=== PATIENT | female | born 1995 | race Caucasian/White ===

== ENCOUNTER 2024-06-30 19:05 | Inpatient (IN) | payer OTHER ==
--- OUTSIDE RECORDS SUMMARY | 2024-06-30 19:11 | XMS REPORT | Continuity of Care Document ---
Author Name Unknown Address [address] [facility] [address] [place] [address] [facility] thconnect Address [address] [facility] [address] [place] [address] Care Team Providers Care Can Tender Name Role Phone Abdiel Sanabria Primary Care Physician + [phone] GIANCARLO MORGAN Attending Clinician Unavailable Thea Helms MA Attending Clinician Unavailchelo Morgan MD, Giancarlo Doherty Attending Clinician [phone] TOMMIE RODRIGUEZ Attending Clinician TOMMIE Fountain Attending Clinician ALISON Delgado Attending Clinician Unavailable Alison Singleton PA-C Attending Clinician [phone] Doctor Unassigned, [place] Attending Clinician U JENNIFER Danielle Attending Clinician Unavailable JENNIFER CALVERT Attending Clinician Unavailable AMBREEN_VIKA Attending Clinician Unavailable Lola Wilhelm LVN Attending Clinician [phone] MIKE JACOBS Attending Clinician Unavailable Yumiko See Attending Clinician [phone] Michael Chaves MD Attending Clinician [phone] Mike Jacobs DO Attending Clinician [phone] MARIIA Attending Clinician Unavailable Summer Bae CRNA Attending Clinician [phone] Skip Harvey MD Attending Clinician [phone] Pob, [facility] Main Attending Clinician Unavailabl e Room, [facility] Nst Attending Clinician Unavailable Bruno De Paz MD Attending Clinician + BRUNO DE PAZ Attending Clinician Unav ailable Ultrasound, [facility] Attending Clinician Unavaila Jaja Chang RN Attending Clinician Unavail able Yahaira Bueno Attending Clinician [phone], [facility] Attending Clinician Unavailable Vaccine, [facility] Attending Clinician Unavailable Olivia Chaudhry MD Attending Clinician [phone] OLIVIA CHAUDHRY Attending Clinician Unavailable OLIVIA CHAUDHRY Attending Clinician Unavailable Sophia CRABTREE, Cassie Attending Clinician Unavailab JAK Henson Attending Clinician Unavailable Marguerite Carlson Attending Clinician UnavailJak Lundberg MD Attending Clinician [phone] Timothy Hawk MD Attending Clinician [phone] TIMOTHY HAWK Attending Clinician Unavailable DOT HILLIARD Attending Clinician Unavailable Reena Art MD Attending Clinician [phone] Dot Hilliard MD Attending Clinician +[phone] MARY CHAUDHRY Attending Clinician Unavail able Shayan Foster Attending Clinician + [phone] SHAYAN TEJADA Attending Clinician Unavaila Abdiel Duval Attending Clinician [phone] GIANCARLO MORGAN Admitting Clinician Unavailable TARA_VIKA Admitting Clinician Unavailable MIKE JACOBS Admitting Clinician Unavailable Mike Jacobs DO Admitting Clinician +[phone] MARIIA Admitting Clinician Unavailable Giancarlo Morgan MD Admitting Clinician [phone] DOT HILLIARD Admitting Clinician Unavailable Dot Hilliard MD Admitting Clinician [phone] SHAYAN TEJADA Admitting Clinician Unavaila janet Payers Payer Name Policy Type Policy Number Effective Date Expirati on Date Source [facility] [id number] 00:00:00 [facility] (MEDICAID HMO) [id number] 2022 00:00:00 [place] [place]ICAID[place] [id number] [facility] [place]MEDICAID REPLACEMENT - HMO) [id number] 2022 00:00:00 [place] [id number] INDIGENT PROGRAM [id number] [place] [facility] ([facility]) [id number] Problems Condition Name Condition Details Condition Category Status Onset Date Resolution Date Last Treatment Date Treating Clinician Comments Source Hyperinsul inism Hyperinsul inism Problem Active 05-09 00:00: 00 [facility] Vitamin D deficiency Vitamin D Deficiency Problem Active 05-09 00:00: 00 [facility] Serum iron below reference range Serum Iron below Reference Range Problem Active 8 00:00: 00 [facility] Anemia Anemia Problem Active 04-25 00:00: 00 [facility] Bipolar I disorder Bipolar I Disorder Problem Active 04-25 00:00: 00 [facility] Anxiety Anxiety Problem Active 04-25 00:00: 00 [facility] Chronic depression Chronic Depression Problem Active 04-25 00:00: 00 [facility] Mood swings Mood Swings Problem Active 04-25 00:00: 00 [facility] Presence of intrauteri ne contracept robb device Presence of intrauteri ne contracept robb device Disease Active 6-22 00:00: 00 [facility] IUD checked - no problems IUD Checked - No Problems Problem Active 6-21 00:00: 00 [facility] Uses intrauteri ne contracept ion Uses Intrauteri ne Contracept ion Problem Active 4-25 00:00: 00 [facility] Encounter for screening for maternal depression Encounter for screening for maternal depression Disease Active 2023-0 3-23 00:00: 00 [facility] Acute right flank pain Acute right flank pain Disease Active 0 2-26 00:00: 00 [facility] Acute gallstone pancreatit is Acute gallstone pancreatit is Disease Active 0 2-24 00:00: 00 [facility] Obesity (BMI 30-39.9) Obesity (BMI 30-39.9) Disease Active 2-24 00:00: 00 [facility] Gestationa l hypertensi on, third trimester Gestationa l hypertensi on, third trimester Disease Active 0 1-10 00:00: 00 [facility] Liveborn infant, of [place] , born in hospital by vaginal delivery Liveborn , of [place] , born in hospital by vaginal delivery Disease Active 0 1-10 00:00: 00 [facility] Chorioamni onitis in third trimester Chorioamni onitis in third trimester Disease Active 0 1-10 00:00: 00 [facility] 39 weeks gestation of 39 weeks gestation of Disease Active 0 1-09 00:00: 00 [facility] Encounter for planned induction of labor Encounter for planned induction of labor Disease Active 0 1-09 00:00: 00 [facility] Excessive growth affecting , antepartum , single or unspecifie d fetus Excessive growth affecting , antepartum , single or unspecifie d fetus Disease Active 1 1-28 00:00: 00 [facility] Two vessel umbilical cord, antepartum , single gestation Two vessel umbilical cord, antepartum , single gestation Disease Active 0 9-28 00:00: 00 [facility] Pelvic pain during Pelvic pain during Disease Active 0 8-18 00:00: 00 [facility] Boil of buttock Boil of buttock Disease Active 0 8-18 00:00: 00 [facility] Obesity in Obesity in Disease Active 0 6-02 00:00: 00 [facility] Obesity, Class III, BMI 40-49.9 (morbid obesity) Obesity, Class III, BMI 40-49.9 (morbid obesity) Disease Active 02-25 00:00: 00 [facility] High risk , antepartum High risk , antepartum Disease Active 02-25 00:00: 00 [facility] Essential hypertensi on Essential Hypertensi on Problem Active 2019-09 00:00: 00 [facility] Essential hypertensi on Essential hypertensi on Disease Active 2019-09 00:00: 00 [facility] Bipolar disorder Bipolar Disorder Problem Active 2019-09 00:00: 00 [facility] Depressive disorder Depressive Disorder Problem Active 2019-09 00:00: 00 [facility] Depressive disorder Depressive disorder Disease Active 2019-09 00:00: 00 [facility] Bipolar disorder Bipolar disorder Disease Active 2019-09 00:00: 00 [facility] Acute sinusitis Acute sinusitis Disease Active 11-15 00:00: 00 [facility] MDD (major depressive disorder), single episode, moderate MDD (major depressive disorder), single episode, moderate Disease Active 10-12 00:00: 00 [facility] Allergies, Adverse Reactions, Alerts Allergy Name Allergy Type Status Severity Reaction(s) Onset Date Inactive Date Treating Clinician Comments Source NO KNOWN ALLERGIE S Drug Class Active [facility] Social History Social Habit Start Date Stop Date Quantity Comments Source ASSERTION 2022-01-18 00:00:00 [facility] History SDOH Social Connections Get Together [facility] History SDOH Social Connections [facility] History SDOH Social Connections Membership [facility] History SDCT Social Connections Meetings [facility] of [facility] use Cigarette Smoker [facility] Alcohol intake 2023-09-28 00:00:00 2023-09-28 00:00:00 Ex-drinker (finding) [facility] History of Social function 2023-06-28 00:00:00 2023-06-28 00:00:00 [facility] Exposure to SARS-CoV-2 (event) 2023-01-08 00:00:00 2023-01-18 14:03:00 Not sure [facility] History SDOH Alcohol Frequency 2022-11-22 00:00:00 2022-11-22 00:00:00 1 [facility] History SDOH Alcohol Std Drinks 2022-11-22 00:00:00 2022-11-22 00:00:00 0 [facility] History SDOH Alcohol Binge 2022-11-22 00:00:00 2022-11-22 00:00:00 1 [facility] History SDOH Social Connections Phone 2022-11-22 00:00:00 2022-11-22 00:00:00 5 [facility] History SDOH Social Connections Living 2022-11-22 00:00:00 2022-11-22 00:00:00 7 [facility] History SDOH Financial 2022-11-22 00:00:00 2022-11-22 00:00:00 5 [facility] History SDOH Food Worry 2022-11-22 00:00:00 2022-11-22 00:00:00 1 [facility] History SDOH Food Scarcity 2022-11-22 00:00:00 2022-11-22 00:00:00 1 [facility] History SDOH Transport Med 2022-11-22 00:00:00 2022-11-22 00:00:00 2 [facility] History SDOH Transport Non-Med 2022-11-22 00:00:00 2022-11-22 00:00:00 2 [facility] Cigarettes smoked current (pack per day) - Reported 2022-04-12 00:00:00 2022-04-12 00:00:00 [facility] Cigarette pack-years 2022-04-12 00:00:00 2022-04-12 00:00:00 [facility] Tobacco Comment 2022-04-12 00:00:00 2022-04-12 00:00:00 stoped 02/03/2022 [facility] Tobacco use and exposure 2022-04-12 00:00:00 2022-04-12 00:00:00 Smokeless tobacco non-user [facility] Sex Assigned At 1995 00:00:00 1995 00:00:00 [facility] Smoking Status Start Date Stop Date Source Current Every Day Smoker [facility] Ex-smoker 2022-04-12 00:00:00 2022-04-12 [facility] Ordered Medication Name Filled Medication Name Start Date Stop Date Current Medication? Ordering Clinician Indication Dosage Frequency Signature (SIG) Comments Components Source SERTraline 50 mg tablet 09-28 09:35: 29 09-28 00:00 :00 No 50mg Take 1 tablet by mouth in the morning. [facility] ibuprofen 600 mg tablet 09-28 09:33: 59 Yes Take 1 tablet twice daily by mouth [facility] FLUoxetine 10 mg capsule 2022-09 00:00: 00 Yes 10mg Take 1 capsule by mouth in the morning. [facility] lamoTRIgine 100 mg tablet 2022-09 00:00: 00 Yes TAKE 1 TABLET BY MOUTH IN THE EVENING [facility] levonorgest reL (KYLEENA) IUD 1 Device 01-18 20:30: 00 01-18 20:28 :00 No [id number] 1{devic e} [facility] SERTraline 50 mg tablet 12-16 12:38: 33 12-16 00:00 :00 No 50mg Take 1 tablet by mouth in the morning. [facility] ARIPiprazol e 2 mg tablet 11-29 00:00: 00 09-28 00:00 :00 No [facility] lactated ringers IV infusion 1,000 mL 11-23 18:00: 00 Yes 1000mL at 100 mL/hr, 1,000 mL, IV Infusion, CONTINUOUS , Starting on Tue11/23/22 at 1200, Until Discontinu ed, Routine, PACU [facility] iohexoL (OMNIPAQUE 300-50 mL)) injection 11-23 16:40: 00 Yes PRN, Starting on Tue11/23/22 at 1040, Until Discontinu ed, Routine, Intra-op [facility] bupivacaine (preserv free) (SENSORCAIN E MPF) 0.25 % (2.5 mg/mL) injection 11-23 16:11: 00 Yes PRN, Starting on Tue11/23/22 at 1011, Until Discontinu ed, Routine, Intra-op [facility] SERTraline (ZOLOFT) 50 mg tablet 11-23 16:10: 44 Yes 50mg Take 50 mg by mouth in the morning. [facility] sodium chloride 0.9 % irrigation solution 11-23 14:14: 00 Yes PRN, Starting on Tue11/23/22 at 0814, Until Discontinu ed, Intra-op [facility] acetaminoph en 325 mg Cap 11-23 00:00: 00 12-16 00:00 :00 No [id number] 650mg Take 650 mg by mouth every 6 (six) hours as needed for Pain (scale 4-6). [facility] lactated ringers IV infusion 1,000 mL 11-22 19:15: 00 Yes 1000mL at 75 mL/hr, 1,000 mL, IV Infusion, CONTINUOUS , Starting on Tue11/22/22 at 1315, Until Discontinu ed, Routine [facility] piperacilli n-tazobacta m (ZOSYN) 3.375 g in NaCl 0.9% (NS) 100 mL MINI-BAG 11-21 01:00: 00 11-23 17:13 :00 No 3.375g 3.375 g, IV Piggyback, Q8H ABX, 9 doses, First dose (after last reorder) on Tue11/20/22 at 1900, Last dose on Tue11/23/22 at 1100, Administer over 240 Minutes, 100 mL
Reas on for Anti-Infec tive: Empiric Non-Surgic al Prophylaxi s
Durat ion of therapy: 72 hours [facility] HYDROcodone -acetaminop hen (NORCO 5) 5-325 mg tablet 1 tablet 11-20 21:17: 52 Yes 1{tbl} 1 tablet, Oral, Q6HPRN, Starting on 11/20/22 at 1517, Until Discontinu ed, Routine, Pain (scale 4-6) [facility] SERTraline (ZOLOFT) tablet 50 mg 11-20 15:00: 00 Yes 50mg 50 mg, Oral, DAILY, First dose on 11/20/22 at 0900, Until Discontinu ed, Routine [facility] ferrous sulfate tablet 325 mg 11-20 14:00: 00 Yes 325mg 325 mg, Oral, BID, First dose on 11/20/22 at 0800, Until Discontinu ed, Routine [facility] docusate (COLACE) capsule 200 mg 11-20 07:26: 17 Yes 200mg 200 mg, Oral, QDAILYPRN, Starting on 11/20/22 at 0126, Until Discontinu ed, Routine, Constipati on [facility] enoxaparin (LOVENOX) injection 40 mg 11-19 23:00: 00 Yes 40mg 40 mg, Subcutaneo us, DAILY, First dose on Tue11/19/22 at 1700, Until Discontinu ed, Routine [facility] lactated ringers IV infusion 1,000 mL 11-19 21:00: 00 11-22 19:12 :15 No 1000mL at 150 mL/hr, 1,000 mL, IV Infusion, CONTINUOUS , Starting on Tue11/19/22 at 1500, Until Tue11/22/22 at 1312, Routine [facility] ondansetron (ZOFRAN (PF)) injection 4 mg 11-19 20:44: 04 Yes 4mg 4 mg, Slow IV Push, Q6HPRN, Starting on Tue11/19/22 at 1444, Until Discontinu ed, Routine, Nausea and Vomiting (N/V) [facility] NaCl 0.9% (NS) IV infusion 1,000 mL 11-19 19:00: 00 11-20 03:49 :34 No 1000mL at 150 mL/hr, IV Infusion, CONTINUOUS , Starting on Tue11/19/22 at 1300, Until Tue11/19/22 at 2149, Routine [facility] famotidine (PEPCID (PF)) injection 20 mg 11-19 19:00: 00 11-19 18:13 :00 No 20mg 20 mg, Slow IV Push, ONCE NOW, 1 dose, On Tue11/19/22 at 1300, KOBI [facility] piperacilli n-tazobacta m (ZOSYN) 3.375 g in NaCl 0.9% (NS) 100 mL MINI-BAG 11-19 18:00: 00 11-19 19:31 :00 No 3.375g 3.375 g, IV Piggyback, ONCE, 1 dose, On Tue11/19/22 at 1200, Administer over 30 Minutes, 100 mL
Reas on for Anti-Infec tive: Empiric Non-Surgic al Prophylaxi s
Durat ion of therapy: 72 hours [facility] dicyclomine (BENTYL) injection 20 mg 11-19 17:30: 00 11-19 17:00 :00 No 20mg 20 mg, Intramuscu lar, ONCE NOW, 1 dose, On Tue11/19/22 at 1130, Routine [facility] ketorolac (TORADOL) injection 30 mg 11-19 17:15: 00 11-19 16:59 :00 No 30mg 30 mg, Slow IV Push, ONCE NOW, 1 dose, On Tue11/19/22 at 1115, KOBI [facility] NaCl 0.9% (NS) bolus infusion 1,000 mL 11-19 17:15: 00 11-19 18:11 :00 No 1000mL at 999 mL/hr, 1,000 mL, IV Piggyback, ONCE, 1 dose, On Tue11/19/22 at 1115, STAT [facility] PNV no.95/[place]roy us fum/folic ac ( ORAL) 10-06 07:44: 58 10-06 00:00 :00 No Take by mouth. [facility] vitamin w/FA tablet 10-06 00:00: 00 12-16 00:00 :00 No [id number] 1{tbl} Take 1 tablet by mouth in the morning. [facility] docusate 100 mg capsule 10-06 00:00: 00 12-16 00:00 :00 No [id number] 200mg Take 2 capsules by mouth once daily as needed for Constipati on. [facility] ferrous sulfate 325 mg (65 mg iron) tablet 10-06 00:00: 00 12-16 00:00 :00 No [id number] 325mg Take 1 tablet by mouth in the morning and 1 tablet in the evening. [facility] ibuprofen 600 mg tablet 10-06 00:00: 00 11-23 00:00 :00 No [id number] 600mg Take 1 tablet by mouth every 6 (six) hours as needed (Pain). Take with food or milk. [facility] witch Ena (TUCKS) 50 % topical pad 10-05 15:14: 54 Yes Topical, Q4HPRN, Starting on Tue10/05/22 at 0914, Until Discontinu ed, Routine, rectal/hem orrhoidal pain [facility] rho(D) immune globulin (RHOGAM) syringe 300 mcg 10-05 15:14: 21 Yes 300ug 300 mcg, Intramuscu lar, ONCE, For 1 dose, Conditiona l, Routine [facility] HYDROcodone -acetaminop hen (NORCO 5) 5-325 mg tablet 1 tablet 10-05 15:14: 18 Yes 1{tbl} 1 tablet, Oral, Q6HPRN, Starting on Tue10/05/22 at 0914, Until Discontinu ed, Routine, Pain (scale 7-10) [facility] ibuprofen (IBU) tablet 600 mg 10-05 15:14: 18 Yes 600mg 600 mg, Oral, Q6HPRN, Starting on Tue10/05/22 at 0914, Until Discontinu ed, Routine, Pain (scale 4-6) [facility] acetaminoph en (TYLENOL) tablet 650 mg 10-05 15:14: 18 Yes 650mg 650 mg, Oral, Q6HPRN, Starting on Tue10/05/22 at 0914, Until Discontinu ed, Routine, Pain (scale 1-3) [facility] diphenhydrA MINE (BENADRYL) tablet 25 mg 10-05 15:14: 18 Yes 25mg 25 mg, Oral, Q6HPRN, Starting on Tue10/05/22 at 0914, Until Discontinu ed, Routine, Sleep, Itching [facility] ondansetron (ZOFRAN (PF)) injection 4 mg 10-05 15:14: 18 Yes 4mg 4 mg, Slow IV Push, Q8HPRN, Starting on Tue10/05/22 at 0914, Until Discontinu ed, Routine, Nausea and Vomiting (N/V) [facility] simethicone (GAS RELIEF (SIMETHICON E)) chewable tablet 160 mg 10-05 15:14: 18 Yes 160mg 160 mg, Oral, PC+HSPRN, Starting on Tue10/05/22 at 0914, Until Discontinu ed, Routine, Gas [facility] docusate (COLACE) capsule 200 mg 10-05 15:14: 18 Yes 200mg 200 mg, Oral, QDAILYPRN, Starting on Tue10/05/22 at 0914, Until Discontinu ed, Routine, Constipati on [facility] magnesium hydroxide (MILK OF MAGNESIA) 400 mg/5 mL suspension 30 mL 10-05 15:14: 18 Yes 30mL 30 mL, Oral, QDAILYPRN, Starting on Tue10/05/22 at 0914, Until Discontinu ed, Routine, Constipati on [facility] benzocaine- menthol (DERMOPLAST ) 20-0.5 % topical spray 10-05 15:14: 18 Yes Topical, PRN, Starting on Tue10/05/22 at 0914, Until Discontinu ed, Routine, Perineum discomfort [facility] oxytocin (PITOCIN) 30 units in NS 500 mL IV infusion 10-05 13:27: 44 10-05 15:14 :30 No 600mL/h 600 mL/hr, IV Infusion, PRN, For post delivery uterine atony., Starting on Tue10/05/[address] at 600 mL/hr for 1 hr then 150 mL/hr for 1 hr.
[facility] oxytocin (PITOCIN) 30 units in NS 500 mL IV infusion 10-05 13:27: 44 10-05 15:14 :30 No 300mL/h 300 mL/hr, IV Infusion, SEE-INSTRU CTIONS, Starting on Tue10/05/[address] at 300 mL/hr for 1 hr then 150 mL/hr for 1 hr. & nbsp; For post delivery uterotonic
[facility] tobramycin (NEBCIN) 280 mg in NaCl 0.9% (NS) piggyback 10-05 10:15: 00 10-05 13:39 :54 No 5mg/kg 280 mg (rounded from 285 mg = 5 mg/kg ?57 kg [place] weight), IV Piggyback, Q24H ABX, 2 doses, First dose on Tue10/05/22 at 0415, Last dose on Tue10/06/22 at 0415, Administer over 30 Minutes, 50 mL
Reas on for Anti-Infec tive: Empiric Therapy for Suspected Infection< br>Empiric Therapy Site: Pelvic
Duration of therapy: 72 hours [facility] ampicillin (POLYCILLIN -N) 2,000 mg in NaCl 0.9% (NS) 100 mL MINI-BAG 10-05 10:15: 00 10-05 22:45 :08 No 2g 2,000 mg (2 g), IV Piggyback, Q6H ABX, First dose on Tue10/05/22 at 0415, Until Discontinu ed, Administer over 30 Minutes, 100 mL
Reas on for Anti-Infec tive: Empiric Therapy for Suspected Infection< br>Empiric Therapy Site: Pelvic
Duration of therapy: 72 hours [facility] acetaminoph en (TYLENOL) tablet 1,000 mg 10-05 09:13: 20 10-05 15:14 :55 No 1000mg 1,000 mg, Oral, Q6HPRN, Starting on Tue10/05/22 at 0313, Until Tue10/05/22 at 0914, Routine, Temp > 38.5 C [facility] PNV no.95/[place] us fum/folic ac ( ORAL) 10-05 07:29: 37 Yes Take by mouth. [facility] bupivacaine (preserv free) (SENSORCAIN E MPF) 0.25 % (2.5 mg/mL) injection 10-05 04:15: 00 10-05 16:28 :48 No Caudal Block, ONCE INTRA PROCEDURE, Starting on Tue10/04/22 at 2215, Until Tue10/05/22 at 1028, Routine, Intra-op [facility] fentaNYL-ro pivacaine 2 mcg/mL-0.1 % (PF) in NS 200 mL epidural infusion RTU 10-05 01:47: 00 10-05 16:28 :48 No Epidural, ONCE INTRA PROCEDURE, Starting on Tue10/04/22 at 1947, Until Tue10/05/22 at 1028, Routine, Intra-op [facility] lidocaine-e pinephrine (XYLOCAINE W/EPINEPHRI NE) 1.5 %-1:200,000 injection 10-05 01:34: 00 10-05 16:28 :48 No Intraderma l, ONCE INTRA PROCEDURE, Starting on Tue10/04/22 at 1934, Until Tue10/05/22 at 1028, Routine, Intra-op [facility] oxytocin (PITOCIN) 30 units in NS 500 mL IV infusion 10-05 01:12: 25 10-05 15:14 :55 No 2mU/min at 2-40 mL/hr, IV Infusion, TITRATE, Starting on Tue10/04/22 at 1912, Until Tue10/05/22 at 0914, KOBI [facility] misoprostol (CYTOTEC) quarter-tab let 25 mcg 10-04 21:00: 00 10-05 00:13 :27 No 25ug 25 mcg, Vaginal, Q4H ABX, First dose (after last modificati on) on Tue10/04/22 at 1500, Until Discontinu ed, Routine [facility] misoprostol (CYTOTEC) quarter-tab let 25 mcg 10-04 15:45: 00 10-04 17:02 :43 No 25ug 25 mcg, Vaginal, Q4H ABX, First dose on Tue10/04/22 at 0945, Until Discontinu ed, Routine [facility] misoprostol (CYTOTEC) quarter-tab let 25 mcg 10-04 15:45: 00 10-04 16:53 :00 No 25ug 25 mcg, Oral, ONCE, 1 dose, On Tue10/04/22 at 0945, Routine [facility] FENTanyl PF (SUBLIMAZE (PF)) injection 100 mcg 10-04 15:44: 44 10-05 15:14 :55 No 100ug 100 mcg, Slow IV Push, Q1HPRN, Starting on Tue10/04/22 at 0944, Until Tue10/05/22 at 0914, Routine, contractio n pain without an epidural and SVE < 8 cm and Cat I strip [facility] proMETHazin e (PHENERGAN) 25 mg in NaCl 0.9% (NS) 50 mL IV piggyback 10-04 15:44: 44 10-05 15:14 :55 No 25mg 25 mg, IV Piggyback, Q4HPRN, Starting on Tue10/04/22 at 0944, Until Tue10/05/22 at 0914, Routine, Nausea and Vomiting (N/V) [facility] lactated ringers IV infusion 500 mL 10-04 15:44: 34 10-05 15:14 :45 No 500mL at 999 mL/hr, 500 mL, IV Infusion, PRN - SEE INSTRUCTIO NS, Starting on Tue10/04/22 at 0944, Until Tue10/05/22 at 0914, Routine [facility] D5W-LR IV infusion 1,000 mL 10-04 15:44: 34 10-05 15:14 :45 No 1000mL at 1-125 mL/hr, IV Infusion, TITRATE, Starting on Tue10/04/22 at 0944, Until Tue10/05/22 at 0914, Routine [facility] lactated ringers IV infusion 500 mL 10-04 15:44: 24 10-05 01:11 :00 No 500mL at 999 mL/hr, 500 mL, IV Infusion, PRN - SEE INSTRUCTIO NS, 1 dose, Starting on Tue10/04/22 at 0944, Until Discontinu ed, Routine [facility] PNV no.95/[place] us fum/folic ac ( ORAL) 2021-09 01:54: 21 Yes Take by mouth. [facility] PNV no.95/[place] us fum/folic ac ( ORAL) 2021-09 03:50: 54 Yes Take by mouth. [facility] Nitrofurant oin&Nit. Macrocryst (MACROBID) 100 mg capsule 100 mg 05-28 04:00: 00 05-28 02:56 :00 No 100mg 100 mg, Oral, ONCE, 1 dose, On Anabella 05/27/22 at 2300, Routine
Reason for Anti-Infec tive: Empiric Therapy for Suspected Infection< br>Empiric Therapy Site: Pelvic
Duration of therapy: 72 hours [facility] PNV no.95/[place]roy us fum/folic ac ( ORAL) 05-27 22:10: 56 Yes Take by mouth. [facility] Nitrofurant oin&Nit. Macrocryst 100 mg capsule 9 00:00: 00 06-23 00:00 :00 No [id number] 100mg Take 1 capsule by mouth in the morning and 1 capsule in the evening. [facility] escitalopra m oxalate (LEXAPRO) 20 mg tablet 05-26 10:28: 05-26 00:00 :00 No 20mg Take 20 mg by mouth daily. [facility] PNV no.95/[place] us fum/folic ac ( ORAL) 05-13 13:56: 54 Yes Take by mouth. [facility] clotrimazol e 1 % topical cream 05-13 00:00: 00 06-23 00:00 :00 No [id number] Apply to area(s) 2 (two) times daily. [facility] escitalopra m oxalate (LEXAPRO) 20 mg tablet 05-01 23:56: 24 Yes 20mg Take 20 mg by mouth daily. [facility] metroNIDAZO LE 500 mg tablet 04-13 00:00: 00 06-23 00:00 :00 No [id number] 500mg Take 1 tablet by mouth every 12 (twelve) hours. [facility] escitalopra m oxalate (LEXAPRO) 20 mg tablet 02-04 11:04: 07 Yes 20mg Take 20 mg by mouth daily. [facility] vitamin w/FA tablet 12 00:00: 00 05-26 00:00 :00 No [id number] 1{tbl} Take 1 tablet by mouth daily. [facility] fluoxetine 40 mg capsule TAKE 1 CAPSULE BY MOUTH DAILY fluoxetine 40 mg capsule TAKE 1 CAPSULE BY MOUTH DAILY No fluoxetine 40 mg capsule TAKE 1 CAPSULE BY MOUTH DAILY [facility] lithium carbonate 300 mg capsule TAKE 1 CAPSULE BY MOUTH IN THE MORNING lithium carbonate 300 mg capsule TAKE 1 CAPSULE BY MOUTH IN THE MORNING No lithium carbonate 300 mg capsule TAKE 1 CAPSULE BY MOUTH IN THE MORNING [facility] misoprostol 200 mcg tablet FOLLOW DIRECTED FROM DOCTOR. TAKE 1 TABLET BY MOUTH THE NIGHT BEFORE AND 1 TABLET THE MORNING OF PROCEDURE misoprostol 200 mcg tablet FOLLOW DIRECTED FROM DOCTOR. TAKE 1 TABLET BY MOUTH THE NIGHT BEFORE AND 1 TABLET THE MORNING OF PROCEDURE No misoprosto l 200 mcg tablet FOLLOW DIRECTED FROM DOCTOR. TAKE 1 TABLET BY MOUTH THE NIGHT BEFORE AND 1 TABLET THE MORNING OF PROCEDURE [facility] risperidone 3 mg tablet TAKE 1 TABLET BY MOUTH EVERY NIGHT AT BEDTIME risperidone 3 mg tablet TAKE 1 TABLET BY MOUTH EVERY NIGHT AT BEDTIME No risperidon e 3 mg tablet TAKE 1 TABLET BY MOUTH EVERY NIGHT AT BEDTIME [facility] cholecalcif roz (vitamin D3) 1,250 mcg (50,000 unit) capsule Take 1 capsule every week by oral route for 90 days. cholecalcif roz (vitamin D3) 1,250 mcg (50,000 unit) capsule Take 1 capsule every week by oral route for 90 days. No 1capsul e(s) Q1W cholecalci ferol (vitamin D3) 1,250 mcg (50,000 unit) capsule Take 1 capsule every week by oral route for 90 days. [facility] ferrous sulfate 325 mg (65 mg iron) tablet Take 1 tablet twice a day by oral route for 30 days. ferrous sulfate 325 mg (65 mg iron) tablet Take 1 tablet twice a day by oral route for 30 days. No 1 BID ferrous sulfate 325 mg (65 mg iron) tablet Take 1 tablet twice a day by oral route for 30 days. [facility] metformin ER 500 mg tablet,exte nded release 24 hr Take 1 tablet every day by oral route for 30 days. metformin ER 500 mg tablet,exte nded release 24 hr Take 1 tablet every day by oral route for 30 days. No 1 Q1D metformin ER 500 mg tablet,ext ended release 24 hr Take 1 tablet every day by oral route for 30 days. [facility] Immunizations Ordered Immunization Name Filled Immunization Name Date Status Comments Source TDAP 2022-08-05 00:00:00 Completed [facility] TDAP 2022-08-05 00:00:00 Completed [facility] TDAP 2022-08-05 00:00:00 Completed [facility] TDAP 2022-08-05 00:00:00 Completed [facility] TDAP 2022-08-05 00:00:00 Completed [facility] TDAP 2022-08-05 00:00:00 Completed [facility] TDAP 2022-08-05 00:00:00 Completed [facility] TDAP 2022-08-05 00:00:00 Completed [facility] TDAP 2022-08-05 00:00:00 Completed [facility] TDAP 2022-08-05 00:00:00 Completed [facility] TDAP 2022-08-05 00:00:00 Completed [facility] TDAP 2022-08-05 00:00:00 Completed [facility] TDAP 2022-08-05 00:00:00 Completed [facility] TDAP 2022-08-05 00:00:00 Completed [facility] TDAP 2022-08-05 00:00:00 Completed [facility] TDAP 2022-08-05 00:00:00 Completed [facility] TDAP 2022-08-05 00:00:00 Completed [facility] TDAP 2022-08-05 00:00:00 Completed [facility] TDAP 2022-08-05 00:00:00 Completed [facility] TDAP 2022-08-05 00:00:00 Completed [facility] TDAP 2022-08-05 00:00:00 Completed [facility] TDAP 2022-08-05 00:00:00 Completed [facility] TDAP 2022-08-05 00:00:00 Completed [facility] TDAP 2022-08-05 00:00:00 Completed [facility] TDAP 2022-08-05 00:00:00 Completed [facility] TDAP 2022-08-05 00:00:00 Completed [facility] TDAP 2022-08-05 00:00:00 Completed [facility] TDAP 2022-08-05 00:00:00 Completed [facility] TDAP 2022-08-05 00:00:00 Completed [facility] TDAP 2022-08-05 00:00:00 Completed [facility] TDAP 2022-08-05 00:00:00 Completed [facility] TDAP 2022-08-05 00:00:00 Completed [facility] TDAP 2022-08-05 00:00:00 Completed [facility] TDAP 2022-08-05 00:00:00 Completed [facility] TDAP 2022-08-05 00:00:00 Completed [facility] TDAP 2022-08-05 00:00:00 Completed [facility] TDAP 2022-08-05 00:00:00 Completed [facility] SARS-COV-2 COVID-19 NADJA-SUCROSE VACCINE 12 YRS+, BIVALENT 0.3ML, IM, (PFIZER HILTON TOP BOOSTER) 2022-07-15 00:00:00 Completed [facility] SARS-COV-2 COVID-19 NADJA-SUCROSE VACCINE 12 YRS+, BIVALENT 0.3ML, IM, (PFIZER HILTON TOP BOOSTER) 2022-07-15 00:00:00 Completed [facility] SARS-COV-2 COVID-19 NADJA-SUCROSE VACCINE 12 YRS+, BIVALENT 0.3ML, IM, (PFIZER HILTON TOP BOOSTER) 2022-07-15 00:00:00 Completed [facility] SARS-COV-2 COVID-19 NADJA-SUCROSE VACCINE 12 YRS+, BIVALENT 0.3ML, IM, (PFIZER HILTON TOP BOOSTER) 2022-07-15 00:00:00 Completed [facility] SARS-COV-2 COVID-19 NADJA-SUCROSE VACCINE 12 YRS+, BIVALENT 0.3ML, IM, (PFIZER HILTON TOP BOOSTER) 2022-07-15 00:00:00 Completed [facility] SARS-COV-2 COVID-19 NADJA-SUCROSE VACCINE 12 YRS+, BIVALENT 0.3ML, IM, (PFIZER HILTON TOP BOOSTER) 2022-07-15 00:00:00 Completed [facility] SARS-COV-2 COVID-19 NADJA-SUCROSE VACCINE 12 YRS+, BIVALENT 0.3ML, IM, (PFIZER HILTON TOP BOOSTER) 2022-07-15 00:00:00 Completed [facility] SARS-COV-2 COVID-19 NADJA-SUCROSE VACCINE 12 YRS+, BIVALENT 0.3ML, IM, (PFIZER HILTON TOP BOOSTER) 2022-07-15 00:00:00 Completed [facility] SARS-COV-2 COVID-19 NADJA-SUCROSE VACCINE 12 YRS+, BIVALENT 0.3ML, IM, (PFIZER HILTON TOP BOOSTER) 2022-07-15 00:00:00 Completed [facility] SARS-COV-2 COVID-19 NADJA-SUCROSE VACCINE 12 YRS+, BIVALENT 0.3ML, IM, (PFIZER HILTON TOP BOOSTER) 2022-07-15 00:00:00 Completed [facility] SARS-COV-2 COVID-19 NADJA-SUCROSE VACCINE 12 YRS+, BIVALENT 0.3ML, IM, (PFIZER HILTON TOP BOOSTER) 2022-07-15 00:00:00 Completed [facility] SARS-COV-2 COVID-19 NADJA-SUCROSE VACCINE 12 YRS+, BIVALENT 0.3ML, IM, (PFIZER HILTON TOP BOOSTER) 2022-07-15 00:00:00 Completed [facility] SARS-COV-2 COVID-19 NADJA-SUCROSE VACCINE 12 YRS+, BIVALENT 0.3ML, IM, (PFIZER HILTON TOP BOOSTER) 2022-07-15 00:00:00 Completed [facility] SARS-COV-2 COVID-19 NADJA-SUCROSE VACCINE 12 YRS+, BIVALENT 0.3ML, IM, (PFIZER HILTON TOP BOOSTER) 2022-07-15 00:00:00 Completed [facility] SARS-COV-2 COVID-19 NADJA-SUCROSE VACCINE 12 YRS+, BIVALENT 0.3ML, IM, (PFIZER HILTON TOP BOOSTER) 2022-07-15 00:00:00 Completed [facility] SARS-COV-2 COVID-19 NADJA-SUCROSE VACCINE 12 YRS+, BIVALENT 0.3ML, IM, (PFIZER HILTON TOP BOOSTER) 2022-07-15 00:00:00 Completed [facility] SARS-COV-2 COVID-19 NADJA-SUCROSE VACCINE 12 YRS+, BIVALENT 0.3ML, IM, (PFIZER HILTON TOP BOOSTER) 2022-07-15 00:00:00 Completed [facility] SARS-COV-2 COVID-19 NADJA-SUCROSE VACCINE 12 YRS+, BIVALENT 0.3ML, IM, (PFIZER HILTON TOP BOOSTER) 2022-07-15 00:00:00 Completed [facility] SARS-COV-2 COVID-19 NADJA-SUCROSE VACCINE 12 YRS+, BIVALENT 0.3ML, IM, (PFIZER HILTON TOP BOOSTER) 2022-07-15 00:00:00 Completed [facility] SARS-COV-2 COVID-19 NADJA-SUCROSE VACCINE 12 YRS+, BIVALENT 0.3ML, IM, (PFIZER HILTON TOP BOOSTER) 2022-07-15 00:00:00 Completed [facility] SARS-COV-2 COVID-19 NADJA-SUCROSE VACCINE 12 YRS+, BIVALENT 0.3ML, IM, (PFIZER HILTON TOP BOOSTER) 2022-07-15 00:00:00 Completed [facility] SARS-COV-2 COVID-19 NADJA-SUCROSE VACCINE 12 YRS+, BIVALENT 0.3ML, IM, (PFIZER HILTON TOP BOOSTER) 2022-07-15 00:00:00 Completed [facility] SARS-COV-2 COVID-19 NADJA-SUCROSE VACCINE 12 YRS+, BIVALENT 0.3ML, IM, (PFIZER HILTON TOP BOOSTER) 2022-07-15 00:00:00 Completed [facility] SARS-COV-2 COVID-19 NADJA-SUCROSE VACCINE 12 YRS+, BIVALENT 0.3ML, IM, (PFIZER HILTON TOP BOOSTER) 2022-07-15 00:00:00 Completed [facility] SARS-COV-2 COVID-19 NADJA-SUCROSE VACCINE 12 YRS+, BIVALENT 0.3ML, IM, (PFIZER HILTON TOP BOOSTER) 2022-07-15 00:00:00 Completed [facility] SARS-COV-2 COVID-19 NADJA-SUCROSE VACCINE 12 YRS+, BIVALENT 0.3ML, IM, (PFIZER HILTON TOP) 2022-07-15 00:00:00 Completed [facility] SARS-COV-2 COVID-19 NADJA-SUCROSE VACCINE 12 YRS+, BIVALENT 0.3ML, IM, (PFIZER HILTON TOP) 2022-07-15 00:00:00 Completed [facility] SARS-COV-2 COVID-19 NADJA-SUCROSE VACCINE 12 YRS+, BIVALENT 0.3ML, IM, (PFIZER HILTON TOP) 2022-07-15 00:00:00 Completed [facility] SARS-COV-2 COVID-19 NAJDA-SUCROSE VACCINE 12 YRS+, BIVALENT 0.3ML, IM, (PFIZER HILTON TOP) 2022-07-15 00:00:00 Completed [facility] SARS-COV-2 COVID-19 NADJA-SUCROSE VACCINE 12 YRS+, BIVALENT 0.3ML, IM, (PFIZER HILTON TOP BOOSTER) 2022-07-15 00:00:00 Completed [facility] SARS-COV-2 COVID-19 NADJA-SUCROSE VACCINE 12 YRS+, BIVALENT 0.3ML, IM, (PFIZER HILTON TOP BOOSTER) 2022-07-15 00:00:00 Completed [facility] SARS-COV-2 COVID-19 NADJA-SUCROSE VACCINE 12 YRS+, BIVALENT 0.3ML, IM, (PFIZER HILTON TOP BOOSTER) 2022-07-15 00:00:00 Completed [facility] SARS-COV-2 COVID-19 NADJA-SUCROSE VACCINE 12 YRS+, BIVALENT 0.3ML, IM, (PFIZER HILTON TOP BOOSTER) 2022-07-15 00:00:00 Completed [facility] SARS-COV-2 COVID-19 NADJA-SUCROSE VACCINE 12 YRS+, BIVALENT 0.3ML, IM, (PFIZER HILTON TOP BOOSTER) 2022-07-15 00:00:00 Completed [facility] SARS-COV-2 COVID-19 NADJA-SUCROSE VACCINE 12 YRS+, BIVALENT 0.3ML, IM, (PFIZER HILTON TOP BOOSTER) 2022-07-15 00:00:00 Completed [facility] SARS-COV-2 COVID-19 NADJA-SUCROSE VACCINE 12 YRS+, BIVALENT 0.3ML, IM, (PFIZER HILTON TOP BOOSTER) 2022-07-15 00:00:00 Completed [facility] SARS-COV-2 COVID-19 NADJA-SUCROSE VACCINE 12 YRS+, BIVALENT 0.3ML, IM, (PFIZER HILTON TOP BOOSTER) 2022-07-15 00:00:00 Completed [facility] SARS-COV-2 COVID-19 NADJA-SUCROSE VACCINE 12 YRS+, BIVALENT 0.3ML, IM, (PFIZER HILTON TOP BOOSTER) 2022-07-15 00:00:00 Completed [facility] SARS-COV-2 COVID-19 NADJA-SUCROSE VACCINE 12 YRS+, BIVALENT 0.3ML, IM, (PFIZER HILTON TOP BOOSTER) 2022-07-15 00:00:00 Completed [facility] SARS-COV-2 COVID-19 NADJA-SUCROSE VACCINE 12 YRS+, BIVALENT 0.3ML, IM, (PFIZER HILTON TOP BOOSTER) 2022-07-15 00:00:00 Completed [facility] SARS-COV-2 COVID-19 NADJA-SUCROSE VACCINE 12 YRS+, BIVALENT 0.3ML, IM, (PFIZER HILTON TOP BOOSTER) 2022-07-15 00:00:00 Completed [facility] SARS-COV-2 COVID-19 NADJA-SUCROSE VACCINE 12 YRS+, BIVALENT 0.3ML, IM, (PFIZER HILTON TOP BOOSTER) 2022-07-15 00:00:00 Completed [facility] Influenza Virus Vaccine Quad IM, Preserv and ABX Free 6 MO-64 YRS 2022-06-23 00:00:00 Completed [facility] Influenza Virus Vaccine Quad IM, Preserv and ABX Free 6 MO-64 YRS 2022-06-23 00:00:00 Completed [facility] Influenza Virus Vaccine Quad IM, Preserv and ABX Free 6 MO-64 YRS 2022-06-23 00:00:00 Completed [facility] Influenza Virus Vaccine Quad IM, Preserv and ABX Free 6 MO-64 YRS 2022-06-23 00:00:00 Completed [facility] Influenza Virus Vaccine Quad IM, Preserv and ABX Free 6 MO-64 YRS 2022-06-23 00:00:00 Completed [facility] Influenza Virus Vaccine Quad IM, Preserv and ABX Free 6 MO-64 YRS 2022-06-23 00:00:00 Completed [facility] Influenza Virus Vaccine Quad IM, Preserv and ABX Free 6 MO-64 YRS 2022-06-23 00:00:00 Completed [facility] Influenza Virus Vaccine Quad IM, Preserv and ABX Free 6 MO-64 YRS 2022-06-23 00:00:00 Completed [facility] Influenza Virus Vaccine Quad IM, Preserv and ABX Free 6 MO-64 YRS 2022-06-23 00:00:00 Completed [facility] Influenza Virus Vaccine Quad IM, Preserv and ABX Free 6 MO-64 YRS 2022-06-23 00:00:00 Completed [facility] Influenza Virus Vaccine Quad IM, Preserv and ABX Free 6 MO-64 YRS 2022-06-23 00:00:00 Completed [facility] Influenza Virus Vaccine Quad IM, Preserv and ABX Free 6 MO-64 YRS 2022-06-23 00:00:00 Completed [facility] Influenza Virus Vaccine Quad IM, Preserv and ABX Free 6 MO-64 YRS 2022-06-23 00:00:00 Completed [facility] Influenza Virus Vaccine Quad IM, Preserv and ABX Free 6 MO-64 YRS 2022-06-23 00:00:00 Completed [facility] Influenza Virus Vaccine Quad IM, Preserv and ABX Free 6 MO-64 YRS 2022-06-23 00:00:00 Completed [facility] Influenza Virus Vaccine Quad IM, Preserv and ABX Free 6 MO-64 YRS 2022-06-23 00:00:00 Completed [facility] Influenza Virus Vaccine Quad IM, Preserv and ABX Free 6 MO-64 YRS 2022-06-23 00:00:00 Completed [facility] Influenza Virus Vaccine Quad IM, Preserv and ABX Free 6 MO-64 YRS 2022-06-23 00:00:00 Completed [facility] Influenza Virus Vaccine Quad IM, Preserv and ABX Free 6 MO-64 YRS 2022-06-23 00:00:00 Completed [facility] Influenza Virus Vaccine Quad IM, Preserv and ABX Free 6 MO-64 YRS 2022-06-23 00:00:00 Completed [facility] Influenza Virus Vaccine Quad IM, Preserv and ABX Free 6 MO-64 YRS 2022-06-23 00:00:00 Completed [facility] Influenza Virus Vaccine Quad IM, Preserv and ABX Free 6 MO-64 YRS 2022-06-23 00:00:00 Completed [facility] Influenza Virus Vaccine Quad IM, Preserv and ABX Free 6 MO-64 YRS 2022-06-23 00:00:00 Completed [facility] Influenza Virus Vaccine Quad IM, Preserv and ABX Free 6 MO-64 YRS 2022-06-23 00:00:00 Completed [facility] Influenza Virus Vaccine Quad IM, Preserv and ABX Free 6 MO-64 YRS 2022-06-23 00:00:00 Completed [facility] Influenza Virus Vaccine Quad IM, Preserv and ABX Free 6 MO-64 YRS 2022-06-23 00:00:00 Completed [facility] Influenza Virus Vaccine Quad IM, Preserv and ABX Free 6 MO-64 YRS 2022-06-23 00:00:00 Completed [facility] Influenza Virus Vaccine Quad IM, Preserv and ABX Free 6 MO-64 YRS 2022-06-23 00:00:00 Completed [facility] Influenza Virus Vaccine Quad IM, Preserv and ABX Free 6 MO-64 YRS 2022-06-23 00:00:00 Completed [facility] Influenza Virus Vaccine Quad IM, Preserv and ABX Free 6 MO-64 YRS 2022-06-23 00:00:00 Completed [facility] Influenza Virus Vaccine Quad IM, Preserv and ABX Free 6 MO-64 YRS 2022-06-23 00:00:00 Completed [facility] Influenza Virus Vaccine Quad IM, Preserv and ABX Free 6 MO-64 YRS 2022-06-23 00:00:00 Completed [facility] Influenza Virus Vaccine Quad IM, Preserv and ABX Free 6 MO-64 YRS 2022-06-23 00:00:00 Completed [facility] Influenza Virus Vaccine Quad IM, Preserv and ABX Free 6 MO-64 YRS 2022-06-23 00:00:00 Completed [facility] Influenza Virus Vaccine Quad IM, Preserv and ABX Free 6 MO-64 YRS 2022-06-23 00:00:00 Completed [facility] Influenza Virus Vaccine Quad IM, Preserv and ABX Free 6 MO-64 YRS 2022-06-23 00:00:00 Completed [facility] Influenza Virus Vaccine Quad IM, Preserv and ABX Free 6 MO-64 YRS 2022-06-23 00:00:00 Completed [facility] Influenza Virus Vaccine Quad IM, Preserv and ABX Free 6 MO-64 YRS 2022-06-23 00:00:00 Completed [facility] Influenza Virus Vaccine Quad IM, Preserv and ABX Free 6 MO-64 YRS 2022-06-23 00:00:00 Completed [facility] Influenza Virus Vaccine Quad IM, Preserv and ABX Free 6 MO-64 YRS 2022-06-23 00:00:00 Completed [facility] Influenza Virus Vaccine Quad IM, Preserv and ABX Free 6 MO-64 YRS 2022-06-23 00:00:00 Completed [facility] Influenza Virus Vaccine Quad IM, Preserv and ABX Free 6 MO-64 YRS 2022-06-23 00:00:00 Completed [facility] Influenza Virus Vaccine Quad IM, Preserv and ABX Free 6 MO-64 YRS 2022-06-23 00:00:00 Completed [facility] Influenza Virus Vaccine Quad IM, Preserv and ABX Free 6 MO-64 YRS 2022-06-23 00:00:00 Completed [facility] SARS-COV-2 COVID-19 PFIZER VACCINE 2021-03-01 00:00:00 Completed [facility] SARS-COV-2 COVID-19 PFIZER VACCINE 2021-03-01 00:00:00 Completed [facility] SARS-COV-2 COVID-19 PFIZER VACCINE 2021-03-01 00:00:00 Completed [facility] SARS-COV-2 COVID-19 PFIZER VACCINE 2021-03-01 00:00:00 Completed [facility] SARS-COV-2 COVID-19 PFIZER VACCINE 2021-03-01 00:00:00 Completed [facility] SARS-COV-2 COVID-19 PFIZER VACCINE 2021-03-01 00:00:00 Completed [facility] SARS-COV-2 COVID-19 PFIZER VACCINE 2021-03-01 00:00:00 Completed [facility] SARS-COV-2 COVID-19 PFIZER VACCINE 2021-03-01 00:00:00 Completed [facility] SARS-COV-2 COVID-19 PFIZER VACCINE 2021-03-01 00:00:00 Completed [facility] SARS-COV-2 COVID-19 PFIZER VACCINE 2021-03-01 00:00:00 Completed [facility] SARS-COV-2 COVID-19 PFIZER VACCINE 2021-03-01 00:00:00 Completed [facility] SARS-COV-2 COVID-19 PFIZER VACCINE 2021-03-01 00:00:00 Completed [facility] SARS-COV-2 COVID-19 PFIZER VACCINE 2021-03-01 00:00:00 Completed [facility] SARS-COV-2 COVID-19 PFIZER VACCINE 2021-03-01 00:00:00 Completed [facility] SARS-COV-2 COVID-19 PFIZER VACCINE 2021-03-01 00:00:00 Completed [facility] SARS-COV-2 COVID-19 PFIZER VACCINE 2021-03-01 00:00:00 Completed [facility] SARS-COV-2 COVID-19 PFIZER VACCINE 2021-03-01 00:00:00 Completed [facility] SARS-COV-2 COVID-19 PFIZER VACCINE 2021-03-01 00:00:00 Completed [facility] SARS-COV-2 COVID-19 PFIZER VACCINE 2021-03-01 00:00:00 Completed [facility] SARS-COV-2 COVID-19 PFIZER VACCINE 2021-03-01 00:00:00 Completed [facility] SARS-COV-2 COVID-19 PFIZER VACCINE 2021-03-01 00:00:00 Completed [facility] SARS-COV-2 COVID-19 PFIZER VACCINE 2021-03-01 00:00:00 Completed [facility] SARS-COV-2 COVID-19 PFIZER VACCINE 2021-03-01 00:00:00 Completed [facility] SARS-COV-2 COVID-19 PFIZER VACCINE 2021-03-01 00:00:00 Completed [facility] SARS-COV-2 COVID-19 PFIZER VACCINE 2021-03-01 00:00:00 Completed [facility] SARS-COV-2 COVID-19 PFIZER VACCINE 2021-03-01 00:00:00 Completed [facility] SARS-COV-2 COVID-19 PFIZER VACCINE 2021-03-01 00:00:00 Completed [facility] SARS-COV-2 COVID-19 PFIZER VACCINE 2021-03-01 00:00:00 Completed [facility] SARS-COV-2 COVID-19 PFIZER VACCINE 2021-03-01 00:00:00 Completed [facility] SARS-COV-2 COVID-19 PFIZER VACCINE 2021-03-01 00:00:00 Completed [facility] SARS-COV-2 COVID-19 PFIZER VACCINE 2021-03-01 00:00:00 Completed [facility] SARS-COV-2 COVID-19 PFIZER VACCINE 2021-03-01 00:00:00 Completed [facility] SARS-COV-2 COVID-19 PFIZER VACCINE 2021-03-01 00:00:00 Completed [facility] SARS-COV-2 COVID-19 PFIZER VACCINE 2021-03-01 00:00:00 Completed [facility] SARS-COV-2 COVID-19 PFIZER VACCINE 2021-03-01 00:00:00 Completed [facility] SARS-COV-2 COVID-19 PFIZER VACCINE 2021-03-01 00:00:00 Completed [facility] SARS-COV-2 COVID-19 PFIZER VACCINE 2021-03-01 00:00:00 Completed [facility] SARS-COV-2 COVID-19 PFIZER VACCINE 2021-03-01 00:00:00 Completed [facility] SARS-COV-2 COVID-19 PFIZER VACCINE 2021-03-01 00:00:00 Completed [facility] SARS-COV-2 COVID-19 PFIZER VACCINE 2021-03-01 00:00:00 Completed [facility] SARS-COV-2 COVID-19 PFIZER VACCINE 2021-03-01 00:00:00 Completed [facility] SARS-COV-2 COVID-19 PFIZER VACCINE 2021-03-01 00:00:00 Completed [facility] SARS-COV-2 COVID-19 PFIZER VACCINE 2021-03-01 00:00:00 Completed [facility] SARS-COV-2 COVID-19 PFIZER VACCINE 2021-03-01 00:00:00 Completed [facility] SARS-COV-2 COVID-19 PFIZER VACCINE 2021-03-01 00:00:00 Completed [facility] SARS-COV-2 COVID-19 PFIZER VACCINE 2021-03-01 00:00:00 Completed [facility] SARS-COV-2 COVID-19 PFIZER VACCINE 2021-03-01 00:00:00 Completed [facility] SARS-COV-2 COVID-19 PFIZER VACCINE 2021-03-01 00:00:00 Completed [facility] SARS-COV-2 COVID-19 PFIZER VACCINE 2021-03-01 00:00:00 Completed [facility] SARS-COV-2 COVID-19 PFIZER VACCINE 2021-03-01 00:00:00 Completed [facility] SARS-COV-2 COVID-19 PFIZER VACCINE 2021-03-01 00:00:00 Completed [facility] SARS-COV-2 COVID-19 PFIZER VACCINE 2021-03-01 00:00:00 Completed [facility] SARS-COV-2 COVID-19 PFIZER VACCINE 2021-03-01 00:00:00 Completed [facility] SARS-COV-2 COVID-19 PFIZER VACCINE 2021-03-01 00:00:00 Completed [facility] SARS-COV-2 COVID-19 PFIZER VACCINE 2021-03-01 00:00:00 Completed [facility] SARS-COV-2 COVID-19 PFIZER VACCINE 2021-03-01 00:00:00 Completed [facility] SARS-COV-2 COVID-19 PFIZER VACCINE 2021-03-01 00:00:00 Completed [facility] SARS-COV-2 COVID-19 PFIZER VACCINE 2021-03-01 00:00:00 Completed [facility] SARS-COV-2 COVID-19 PFIZER VACCINE 2021-03-01 00:00:00 Completed [facility] SARS-COV-2 COVID-19 PFIZER VACCINE 2021-03-01 00:00:00 Completed [facility] SARS-COV-2 COVID-19 PFIZER VACCINE 2021-03-01 00:00:00 Completed [facility] SARS-COV-2 COVID-19 PFIZER VACCINE 2021-03-01 00:00:00 Completed [facility] SARS-COV-2 COVID-19 PFIZER VACCINE 2021-03-01 00:00:00 Completed [facility] SARS-COV-2 COVID-19 PFIZER VACCINE 2021-03-01 00:00:00 Completed [facility] SARS-COV-2 COVID-19 PFIZER VACCINE 2021-02-08 00:00:00 Completed [facility] SARS-COV-2 COVID-19 PFIZER VACCINE 2021-02-08 00:00:00 Completed [facility] SARS-COV-2 COVID-19 PFIZER VACCINE 2021-02-08 00:00:00 Completed [facility] SARS-COV-2 COVID-19 PFIZER VACCINE 2021-02-08 00:00:00 Completed [facility] SARS-COV-2 COVID-19 PFIZER VACCINE 2021-02-08 00:00:00 Completed [facility] SARS-COV-2 COVID-19 PFIZER VACCINE 2021-02-08 00:00:00 Completed [facility] SARS-COV-2 COVID-19 PFIZER VACCINE 2021-02-08 00:00:00 Completed [facility] SARS-COV-2 COVID-19 PFIZER VACCINE 2021-02-08 00:00:00 Completed [facility] SARS-COV-2 COVID-19 PFIZER VACCINE 2021-02-08 00:00:00 Completed [facility] SARS-COV-2 COVID-19 PFIZER VACCINE 2021-02-08 00:00:00 Completed [facility] SARS-COV-2 COVID-19 PFIZER VACCINE 2021-02-08 00:00:00 Completed [facility] SARS-COV-2 COVID-19 PFIZER VACCINE 2021-02-08 00:00:00 Completed [facility] SARS-COV-2 COVID-19 PFIZER VACCINE 2021-02-08 00:00:00 Completed [facility] SARS-COV-2 COVID-19 PFIZER VACCINE 2021-02-08 00:00:00 Completed [facility] SARS-COV-2 COVID-19 PFIZER VACCINE 2021-02-08 00:00:00 Completed [facility] SARS-COV-2 COVID-19 PFIZER VACCINE 2021-02-08 00:00:00 Completed [facility] SARS-COV-2 COVID-19 PFIZER VACCINE 2021-02-08 00:00:00 Completed [facility] SARS-COV-2 COVID-19 PFIZER VACCINE 2021-02-08 00:00:00 Completed [facility] SARS-COV-2 COVID-19 PFIZER VACCINE 2021-02-08 00:00:00 Completed [facility] SARS-COV-2 COVID-19 PFIZER VACCINE 2021-02-08 00:00:00 Completed [facility] SARS-COV-2 COVID-19 PFIZER VACCINE 2021-02-08 00:00:00 Completed [facility] SARS-COV-2 COVID-19 PFIZER VACCINE 2021-02-08 00:00:00 Completed [facility] SARS-COV-2 COVID-19 PFIZER VACCINE 2021-02-08 00:00:00 Completed [facility] SARS-COV-2 COVID-19 PFIZER VACCINE 2021-02-08 00:00:00 Completed [facility] SARS-COV-2 COVID-19 PFIZER VACCINE 2021-02-08 00:00:00 Completed [facility] SARS-COV-2 COVID-19 PFIZER VACCINE 2021-02-08 00:00:00 Completed [facility] SARS-COV-2 COVID-19 PFIZER VACCINE 2021-02-08 00:00:00 Completed [facility] SARS-COV-2 COVID-19 PFIZER VACCINE 2021-02-08 00:00:00 Completed [facility] SARS-COV-2 COVID-19 PFIZER VACCINE 2021-02-08 00:00:00 Completed [facility] SARS-COV-2 COVID-19 PFIZER VACCINE 2021-02-08 00:00:00 Completed [facility] SARS-COV-2 COVID-19 PFIZER VACCINE 2021-02-08 00:00:00 Completed [facility] SARS-COV-2 COVID-19 PFIZER VACCINE 2021-02-08 00:00:00 Completed [facility] SARS-COV-2 COVID-19 PFIZER VACCINE 2021-02-08 00:00:00 Completed [facility] SARS-COV-2 COVID-19 PFIZER VACCINE 2021-02-08 00:00:00 Completed [facility] SARS-COV-2 COVID-19 PFIZER VACCINE 2021-02-08 00:00:00 Completed [facility] SARS-COV-2 COVID-19 PFIZER VACCINE 2021-02-08 00:00:00 Completed [facility] SARS-COV-2 COVID-19 PFIZER VACCINE 2021-02-08 00:00:00 Completed [facility] SARS-COV-2 COVID-19 PFIZER VACCINE 2021-02-08 00:00:00 Completed [facility] SARS-COV-2 COVID-19 PFIZER VACCINE 2021-02-08 00:00:00 Completed [facility] SARS-COV-2 COVID-19 PFIZER VACCINE 2021-02-08 00:00:00 Completed [facility] SARS-COV-2 COVID-19 PFIZER VACCINE 2021-02-08 00:00:00 Completed [facility] SARS-COV-2 COVID-19 PFIZER VACCINE 2021-02-08 00:00:00 Completed [facility] SARS-COV-2 COVID-19 PFIZER VACCINE 2021-02-08 00:00:00 Completed [facility] SARS-COV-2 COVID-19 PFIZER VACCINE 2021-02-08 00:00:00 Completed [facility] SARS-COV-2 COVID-19 PFIZER VACCINE 2021-02-08 00:00:00 Completed [facility] SARS-COV-2 COVID-19 PFIZER VACCINE 2021-02-08 00:00:00 Completed [facility] SARS-COV-2 COVID-19 PFIZER VACCINE 2021-02-08 00:00:00 Completed [facility] SARS-COV-2 COVID-19 PFIZER VACCINE 2021-02-08 00:00:00 Completed [facility] SARS-COV-2 COVID-19 PFIZER VACCINE 2021-02-08 00:00:00 Completed [facility] SARS-COV-2 COVID-19 PFIZER VACCINE 2021-02-08 00:00:00 Completed [facility] SARS-COV-2 COVID-19 PFIZER VACCINE 2021-02-08 00:00:00 Completed [facility] SARS-COV-2 COVID-19 PFIZER VACCINE 2021-02-08 00:00:00 Completed [facility] SARS-COV-2 COVID-19 PFIZER VACCINE 2021-02-08 00:00:00 Completed [facility] SARS-COV-2 COVID-19 PFIZER VACCINE 2021-02-08 00:00:00 Completed [facility] SARS-COV-2 COVID-19 PFIZER VACCINE 2021-02-08 00:00:00 Completed [facility] SARS-COV-2 COVID-19 PFIZER VACCINE 2021-02-08 00:00:00 Completed [facility] SARS-COV-2 COVID-19 PFIZER VACCINE 2021-02-08 00:00:00 Completed [facility] SARS-COV-2 COVID-19 PFIZER VACCINE 2021-02-08 00:00:00 Completed [facility] SARS-COV-2 COVID-19 PFIZER VACCINE 2021-02-08 00:00:00 Completed [facility] SARS-COV-2 COVID-19 PFIZER VACCINE 2021-02-08 00:00:00 Completed [facility] SARS-COV-2 COVID-19 PFIZER VACCINE 2021-02-08 00:00:00 Completed [facility] SARS-COV-2 COVID-19 PFIZER VACCINE 2021-02-08 00:00:00 Completed [facility] SARS-COV-2 COVID-19 PFIZER VACCINE 2021-02-08 00:00:00 Completed [facility] SARS-COV-2 COVID-19 PFIZER VACCINE 2021-02-08 00:00:00 Completed [facility] TDAP 2010-09-26 00:00:00 Completed [facility] TDAP 2010-09-26 00:00:00 Completed [facility] TDAP 2010-09-26 00:00:00 Completed [facility] TDAP 2010-09-26 00:00:00 Completed [facility] TDAP 2010-09-26 00:00:00 Completed [facility] TDAP 2010-09-26 00:00:00 Completed [facility] TDAP 2010-09-26 00:00:00 Completed [facility] TDAP 2010-09-26 00:00:00 Completed [facility] TDAP 2010-09-26 00:00:00 Completed [facility] TDAP 2010-09-26 00:00:00 Completed [facility] TDAP 2010-09-26 00:00:00 Completed [facility] TDAP 2010-09-26 00:00:00 Completed [facility] TDAP 2010-09-26 00:00:00 Completed [facility] TDAP 2010-09-26 00:00:00 Completed [facility] TDAP 2010-09-26 00:00:00 Completed [facility] TDAP 2010-09-26 00:00:00 Completed [facility] TDAP 2010-09-26 00:00:00 Completed [facility] TDAP 2010-09-26 00:00:00 Completed [facility] TDAP 2010-09-26 00:00:00 Completed [facility] TDAP 2010-09-26 00:00:00 Completed [facility] TDAP 2010-09-26 00:00:00 Completed [facility] TDAP 2010-09-26 00:00:00 Completed [facility] TDAP 2010-09-26 00:00:00 Completed [facility] TDAP 2010-09-26 00:00:00 Completed [facility] TDAP 2010-09-26 00:00:00 Completed [facility] TDAP 2010-09-26 00:00:00 Completed [facility] TDAP 2010-09-26 00:00:00 Completed [facility] TDAP 2010-09-26 00:00:00 Completed [facility] TDAP 2010-09-26 00:00:00 Completed [facility] TDAP 2010-09-26 00:00:00 Completed [facility] TDAP 2010-09-26 00:00:00 Completed [facility] TDAP 2010-09-26 00:00:00 Completed [facility] TDAP 2010-09-26 00:00:00 Completed [facility] TDAP 2010-09-26 00:00:00 Completed [facility] TDAP 2010-09-26 00:00:00 Completed [facility] TDAP 2010-09-26 00:00:00 Completed [facility] TDAP 2010-09-26 00:00:00 Completed [facility] TDAP 2010-09-26 00:00:00 Completed [facility] TDAP 2010-09-26 00:00:00 Completed [facility] TDAP 2010-09-26 00:00:00 Completed [facility] TDAP 2010-09-26 00:00:00 Completed [facility] TDAP 2010-09-26 00:00:00 Completed [facility] TDAP 2010-09-26 00:00:00 Completed [facility] TDAP 2010-09-26 00:00:00 Completed [facility] TDAP 2010-09-26 00:00:00 Completed [facility] TDAP 2010-09-26 00:00:00 Completed [facility] TDAP 2010-09-26 00:00:00 Completed [facility] TDAP 2010-09-26 00:00:00 Completed [facility] TDAP 2010-09-26 00:00:00 Completed [facility] TDAP 2010-09-26 00:00:00 Completed [facility] TDAP 2010-09-26 00:00:00 Completed [facility] TDAP 2010-09-26 00:00:00 Completed [facility] TDAP 2010-09-26 00:00:00 Completed [facility] TDAP 2010-09-26 00:00:00 Completed [facility] TDAP 2010-09-26 00:00:00 Completed [facility] TDAP 2010-09-26 00:00:00 Completed [facility] TDAP 2010-09-26 00:00:00 Completed [facility] TDAP 2010-09-26 00:00:00 Completed [facility] TDAP 2010-09-26 00:00:00 Completed [facility] TDAP 2010-09-26 00:00:00 Completed [facility] TDAP 2010-09-26 00:00:00 Completed [facility] TDAP 2010-09-26 00:00:00 Completed [facility] TDAP 2010-09-26 00:00:00 Completed [facility] TDAP 2010-09-26 00:00:00 Completed [facility] TDAP Unknown Completed [facility] SARS-COV-2 COVID-19 PFIZER VACCINE Unknown Completed [facility] Influenza Virus Vaccine Quad IM, Preserv and ABX Free 6 MO-64 YRS (FLUCELVAX) Unknown Completed [facility] SARS-COV-2 COVID-19 NADJA-SUCROSE VACCINE 12 YRS+, BIVALENT 0.3ML, IM, (PFIZER HILTON TOP) Unknown Completed [facility] TDAP Unknown Completed [facility] SARS-COV-2 COVID-19 PFIZER VACCINE Unknown Completed [facility] Influenza Virus Vaccine Quad IM, Preserv and ABX Free 6 MO-64 YRS (FLUCELVAX) Unknown Completed [facility] SARS-COV-2 COVID-19 NADJA-SUCROSE VACCINE 12 YRS+, BIVALENT 0.3ML, IM, (PFIZER HILTON TOP) Unknown Completed [facility] TDAP Unknown Completed [facility] SARS-COV-2 COVID-19 PFIZER VACCINE Unknown Completed [facility] Influenza Virus Vaccine Quad IM, Preserv and ABX Free 6 MO-64 YRS (FLUCELVAX) Unknown Completed [facility] SARS-COV-2 COVID-19 NADJA-SUCROSE VACCINE 12 YRS+, BIVALENT 0.3ML, IM, (PFIZER HILTON TOP) Unknown Completed [facility] TDAP Unknown Completed [facility] SARS-COV-2 COVID-19 PFIZER VACCINE Unknown Completed [facility] Influenza Virus Vaccine Quad IM, Preserv and ABX Free 6 MO-64 YRS (FLUCELVAX) Unknown Completed [facility] SARS-COV-2 COVID-19 NADJA-SUCROSE VACCINE 12 YRS+, BIVALENT 0.3ML, IM, (PFIZER HILTON TOP) Unknown Completed [facility] TDAP Unknown Completed [facility] SARS-COV-2 COVID-19 PFIZER VACCINE Unknown Completed [facility] Influenza Virus Vaccine Quad IM, Preserv and ABX Free 6 MO-64 YRS (FLUCELVAX) Unknown Completed [facility] TDAP Unknown Completed [facility] SARS-COV-2 COVID-19 PFIZER VACCINE Unknown Completed [facility] TDAP Unknown Completed [facility] SARS-COV-2 COVID-19 PFIZER VACCINE Unknown Completed [facility] TDAP Unknown Completed [facility] SARS-COV-2 COVID-19 PFIZER VACCINE Unknown Completed [facility] SARS-COV-2 COVID-19 PFIZER VACCINE Unknown Completed [facility] Influenza Virus Vaccine Quad IM, Preserv and ABX Free 6 MO-64 YRS (FLUCELVAX) Unknown Completed [facility] SARS-COV-2 COVID-19 NADJA-SUCROSE VACCINE 12 YRS+, BIVALENT 0.3ML, IM, (PFIZER HILTON TOP) Unknown Completed [facility] TDAP Unknown Completed [facility] TDAP Unknown Completed [facility] SARS-COV-2 COVID-19 PFIZER VACCINE Unknown Completed [facility] Influenza Virus Vaccine Quad IM, Preserv and ABX Free 6 MO-64 YRS (FLUCELVAX) Unknown Completed [facility] SARS-COV-2 COVID-19 NADJA-SUCROSE VACCINE 12 YRS+, BIVALENT 0.3ML, IM, (PFIZER HILTON TOP) Unknown Completed [facility] SARS-COV-2 COVID-19 NADJA-SUCROSE VACCINE 12 YRS+, BIVALENT 0.3ML, IM, (PFIZER HILTON TOP) Unknown Completed [facility] Influenza Virus Vaccine Quad .5 mL IM 6+ MO (FLUZONE/FLULAVAL/F LUARIX) Unknown Completed [facility] Haemophilus influenzae type b vaccine, conjugate unspecified formulation Unknown Completed [facility] Polio (IPV/OPV) Unknown Completed [facility] TDAP Unknown Completed [facility] SARS-COV-2 COVID-19 PFIZER VACCINE Unknown Completed [facility] DPT/HIB Unknown Completed [facility] Hep B, Adol or Pedi Dosage Unknown Completed [facility] MMR Unknown Completed [facility] IPV Unknown Completed [facility] Varicella (varivax)(chicken pox) Unknown Completed [facility] DTaP, Unspecified Formulation Unknown Completed [facility] Influenza Virus Vaccine Quad IM, Preserv and ABX Free 6 MO-64 YRS (FLUCELVAX) Unknown Completed [facility] TDAP Unknown Completed [facility] SARS-COV-2 COVID-19 PFIZER VACCINE Unknown Completed [facility] Influenza Virus Vaccine Quad IM, Preserv and ABX Free 6 MO-64 YRS (FLUCELVAX) Unknown Completed [facility] SARS-COV-2 COVID-19 NADJA-SUCROSE VACCINE 12 YRS+, BIVALENT 0.3ML, IM, (PFIZER HILTON TOP) Unknown Completed [facility] DPT/HIB Unknown Completed [facility] Influenza Virus Vaccine Quad .5 mL IM 6+ MO (FLUZONE/FLULAVAL/F LUARIX) Unknown Completed [facility] Hep B, Adol or Pedi Dosage Unknown Completed [facility] Haemophilus influenzae type b vaccine, conjugate unspecified formulation Unknown Completed [facility] MMR Unknown Completed [facility] IPV Unknown Completed [facility] Varicella (varivax)(chicken pox) Unknown Completed [facility] Polio (IPV/OPV) Unknown Completed [facility] DTaP, Unspecified Formulation Unknown Completed [facility] Vital Signs Vital Name Observation Time Observation Value Comments S ource BMI (Body Mass Index) 2024-05-09 00:00:00 43.2 kg/m2 [facility] Body Weight 2024-05-09 00:00:00 4416 [oz_av] [facility] Height 2024-05-09 00:00:00 67 [in_i] [facility] BP Systolic 2024-05-09 00:00:00 127 mm[Hg] [facility] BP Diastolic 2024-05-09 00:00:00 67 mm[Hg] [facility] Body Weight 2024-04-25 00:00:00 4320 [oz_av] [facility] Height 2024-04-25 00:00:00 67 [in_i] [facility] BP Systolic 2024-04-25 00:00:00 125 mm[Hg] [facility] BP Diastolic 2024-04-25 00:00:00 68 mm[Hg] [facility] BMI (Body Mass Index) 2024-04-25 00:00:00 42.3 kg/m2 [facility] Systolic blood pressure 2023-09-28 15:32:00 121 mm[Hg] [facility] Diastolic blood pressure 2023-09-28 15:32:00 73 mm[Hg] [facility] Heart rate 2023-09-28 15:32:00 64 /min [facility] Body temperature 2023-09-28 15:32:00 36.56 Niurka [facility] Respiratory rate 2023-09-28 15:32:00 18 /min [facility] Body height 2023-09-28 15:32:00 167.6 cm [facility] Body weight 2023-09-28 15:32:00 115.577 kg [facility] BMI 2023-09-28 15:32:00 41.13 kg/m2 [facility] Systolic blood pressure 2023-06-28 14:05:00 130 mm[Hg] [facility] Diastolic blood pressure 2023-06-28 14:05:00 76 mm[Hg] [facility] Heart rate 2023-06-28 14:05:00 72 /[facility] 2023-06-28 14:05:00 36.22 Inurka [facility] Respiratory rate 2023-06-28 14:05:00 17 /min [facility] Body height 2023-06-28 14:05:00 165.1 cm [facility] Body weight 2023-06-28 14:05:00 114.034 kg [facility] BMI 2023-06-28 14:05:00 41.84 kg/m2 [facility] Systolic blood pressure 2023-03-16 14:39:00 104 mm[Hg] [facility] Diastolic blood pressure 2023-03-16 14:39:00 62 mm[Hg] [facility] Heart rate 2023-03-16 14:39:00 69 /min [facility] Body temperature 2023-03-16 14:39:00 36.72 Niurka [facility] Body height 2023-03-16 14:39:00 165.1 cm [facility] Body weight 2023-03-16 14:39:00 111.494 kg [facility] BMI 2023-03-16 14:39:00 40.90 kg/m2 [facility] Systolic blood pressure 2023-01-18 20:08:00 95 mm[Hg] [facility] Diastolic blood pressure 2023-01-18 20:08:00 66 mm[Hg] [facility] Heart rate 2023-01-18 20:08:00 76 /min [facility] Body temperature 2023-01-18 20:08:00 36.67 Niurka [facility] Respiratory rate 2023-01-18 20:08:00 16 /min [facility] Body height 2023-01-18 20:08:00 165.1 cm [facility] weight 2023-01-18 20:08:00 104.146 [facility] BMI 2023-01-18 20:08:00 38.21 kg/m2 [facility] Oxygen saturation in Arterial blood by Pulse oximetry 2023-01-18 20:08:00 99 /min [facility] Systolic blood pressure 2022-12-16 15:48:00 111 mm[Hg] [facility] Diastolic blood pressure 2022-12-16 15:48:00 73 mm[Hg] [facility] Heart rate 2022-12-16 15:48:00 80 /min [facility] Body temperature 2022-12-16 15:48:00 36.5 Niurka [facility] Body height 2022-12-16 15:48:00 165.1 cm [facility] Body weight 2022-12-16 15:48:00 103.783 kg [facility] BMI 2022-12-16 15:48:00 38.07 kg/m2 [facility] Systolic blood pressure 2022-11-23 19:12:00 137 mm[Hg] [facility] Diastolic blood pressure 2022-11-23 19:12:00 77 mm[Hg] [facility] Heart rate 2022-11-23 19:12:00 63 /min [facility] Oxygen saturation in Arterial blood by Pulse oximetry 2022-11-23 19:12:00 98 /min [facility] Body temperature 2022-11-23 18:28:00 35.39 Niurka [facility] Respiratory rate 2022-11-23 18:28:00 18 /min [facility] Body weight 2022-11-23 09:54:00 99.973 kg [facility] BMI 2022-11-23 09:54:00 36.68 kg/m2 [facility] Body height 2022-11-19 23:53:00 165.1 cm [facility] Systolic blood pressure 2022-11-23 19:12:00 137 mm[Hg] [facility] Diastolic blood pressure 2022-11-23 19:12:00 77 mm[Hg] [facility] Heart rate 2022-11-23 19:12:00 63 /min [facility] Oxygen saturation in Arterial blood by Pulse oximetry 2022-11-23 19:12:00 98 /min [facility] Body temperature 2022-11-23 18:28:00 35.39 Niurka [facility] Respiratory rate 2022-11-23 18:28:00 18 /min [facility] Body weight 2022-11-23 09:54:00 99.973 kg [facility] BMI 2022-11-23 09:54:00 36.68 kg/m2 [facility] Body height 2022-11-19 23:53:00 165.1 cm [facility] BP Diastolic 2022-10-18 00:00:00 80 mm[Hg] [facility] Height 2022-10-18 00:00:00 67 [in_i] [facility] BMI (Body Mass Index) 2022-10-18 00:00:00 33.7 kg/m2 [facility] BP Systolic 2022-10-18 00:00:00 112 mm[Hg] [facility] Body Weight 2022-10-18 00:00:00 3440 [oz_av] [facility] Systolic blood pressure 2022-10-07 01:30:00 136 mm[Hg] [facility] Diastolic blood pressure 2022-10-07 01:30:00 80 mm[Hg] [facility] Heart rate 2022-10-07 01:30:00 78 /min [facility] Body temperature 2022-10-07 01:30:00 37.06 Niurka [facility] Respiratory rate 2022-10-07 01:30:00 18 /min [facility] Oxygen saturation in Arterial blood by Pulse oximetry 2022-10-06 06:15:00 100 /min [facility] Body height 2022-10-04 17:27:00 165.1 cm [facility] Body weight 2022-10-04 17:27:00 112.764 kg [facility] BMI 2022-10-04 17:27:00 41.37 kg/m2 [facility] Systolic blood pressure 2022-09-30 16:54:00 123 mm[Hg] [facility] Diastolic blood pressure 2022-09-30 16:54:00 75 mm[Hg] [facility] Heart rate 2022-09-30 16:54:00 61 /min [facility] Body temperature 2022-09-30 16:54:00 36.56 Niurka [facility] Body height 2022-09-30 16:54:00 165.1 cm [facility] Body weight 2022-09-30 16:54:00 113.581 kg [facility] BMI 2022-09-30 16:54:00 41.67 kg/m2 [facility] Systolic blood pressure 2022-09-28 17:05:00 138 mm[Hg] [facility] Diastolic blood pressure 2022-09-28 17:05:00 86 mm[Hg] [facility] Heart rate 2022-09-28 17:05:00 78 /min [facility] Respiratory rate 2022-09-28 17:05:00 18 /min [facility] Body height 2022-09-28 17:05:00 165.1 cm [facility] Body weight 2022-09-28 17:05:00 111.585 kg [facility] BMI 2022-09-28 17:05:00 40.94 kg/m2 [facility] Heart rate 2022-09-22 07:17:00 81 [facility] Oxygen saturation in Arterial blood by Pulse oximetry 2022-09-22 07:17:00 99 /min [facility] Systolic blood pressure 2022-09-22 07:15:00 112 mm[Hg] [facility] Diastolic blood pressure 2022-09-22 07:15:00 72 mm[Hg] [facility] Body temperature 2022-09-22 06:19:00 36.56 Niurka [facility] Respiratory rate 2022-09-22 06:19:00 20 /min [facility] Body height 2022-09-22 06:19:00 167.6 cm [facility] Body weight 2022-09-22 06:19:00 111.267 kg [facility] BMI 2022-09-22 06:19:00 39.61 kg/m2 [facility] Systolic blood pressure 2022-09-21 17:06:00 129 mm[Hg] [facility] Diastolic blood pressure 2022-09-21 17:06:00 85 mm[Hg] [facility] Heart rate 2022-09-21 17:06:00 69 /min [facility] Body temperature 2022-09-21 17:06:00 36.72 Niurka [facility] Respiratory rate 2022-09-21 17:06:00 18 /min [facility] Body height 2022-09-21 17:06:00 167.6 cm [facility] Body weight 2022-09-21 17:06:00 111.857 kg [facility] BMI 2022-09-21 17:06:00 39.80 kg/m2 [facility] Systolic blood pressure 2022-09-16 16:38:00 131 mm[Hg] [facility] Diastolic blood pressure 2022-09-16 16:38:00 78 mm[Hg] [facility] Heart rate 2022-09-16 16:38:00 75 /min [facility] Body temperature 2022-09-16 16:38:00 36.83 Niurka [facility] Respiratory rate 2022-09-16 16:38:00 18 /min [facility] Body height 2022-09-16 16:38:00 167.6 cm [facility] Body weight 2022-09-16 16:38:00 109.317 kg [facility] BMI 2022-09-16 16:38:00 38.90 kg/m2 [facility] Systolic blood pressure 2022-09-13 15:05:00 115 mm[Hg] [facility] Diastolic blood pressure 2022-09-13 15:05:00 69 mm[Hg] [facility] Heart rate 2022-09-13 15:05:00 50 /[facility] Body temperature 2022-09-13 15:05:00 37.06 Niurka [facility] Body height 2022-09-13 15:05:00 167.6 cm [facility] Body weight 2022-09-13 15:05:00 109.408 kg [facility] BMI 2022-09-13 15:05:00 38.93 kg/m2 [facility] Systolic blood pressure 2022-09-09 15:56:00 110 mm[Hg] [facility] Diastolic blood pressure 2022-09-09 15:56:00 66 mm[Hg] [facility] Heart rate 2022-09-09 15:56:00 77 /min [facility] Body temperature 2022-09-09 15:56:00 37.06 Niurka [facility] Body height 2022-09-09 15:56:00 167.6 cm [facility] Body weight 2022-09-09 15:56:00 108.863 [facility] BMI 2022-09-09 15:56:00 38.74 [facility]2 [facility] 2022-09-06 15:51:00 107 mm[Hg] [facility] Diastolic blood pressure 2022-09-06 15:51:00 69 mm[Hg] [facility] Heart rate 2022-09-06 15:51:00 101 /min [facility] Body temperature 2022-09-06 15:51:00 37.06 Niurka [facility] Body height 2022-09-06 15:51:00 167.6 cm [facility] Body weight 2022-09-06 15:51:00 107.23 kg [facility] BMI 2022-09-06 15:51:00 38.16 kg/m2 [facility] Systolic blood pressure 2022-09-02 15:46:00 110 mm[Hg] [place] [facility] Diastolic blood pressure 2022-09-02 15:46:00 68 mm[Hg] [facility] Heart rate 2022-09-02 15:46:00 64 /min [facility] Body temperature 2022-09-02 15:46:00 36.67 Niurka [facility] Body height 2022-09-02 15:46:00 167.6 cm [facility] Body weight 2022-09-02 15:46:00 106.232 kg [facility] BMI 2022-09-02 15:46:00 37.80 kg/m2 [facility] Systolic blood pressure 2022-08-30 16:21:00 120 mm[Hg] [facility] Diastolic blood pressure 2022-08-30 16:21:00 76 mm[Hg] [facility] Heart rate 2022-08-30 16:21:00 83 /min Un[facility] Body temperature 2022-08-30 16:21:00 36.72 Niurka [facility] Body height 2022-08-30 16:21:00 167.6 cm [facility] Body weight 2022-08-30 16:21:00 105.688 kg [facility] BMI 2022-08-30 16:21:00 37.61 kg/m2 [facility] Systolic blood pressure 2022-08-26 16:16:00 127 mm[Hg] [facility] Diastolic blood pressure 2022-08-26 16:16:00 68 mm[Hg] [facility] Heart rate 2022-08-26 16:16:00 78 /min [facility] Body temperature 2022-08-26 16:16:00 36.39 Niurka [facility] Body height 2022-08-26 16:16:00 167.6 cm [facility] Body weight 2022-08-26 16:16:00 106.232 kg [facility] BMI 2022-08-26 16:16:00 37.80 kg/m2 [facility] Heart rate 2022-08-24 07:45:00 65 /min Un[facility] Oxygen saturation in Arterial blood by Pulse oximetry 2022-08-24 07:45:00 99 /min [facility] Systolic blood pressure 2022-08-24 06:38:00 112 mm[Hg] [facility] Diastolic blood pressure 2022-08-24 06:38:00 75 mm[Hg] [facility] Body temperature 2022-08-24 06:38:00 37.11 Niurka [facility] Respiratory rate 2022-08-24 06:38:00 18 /min [facility] Body height 2022-08-24 06:38:00 167.6 cm [facility] Body weight 2022-08-24 06:38:00 105.235 kg [facility] BMI 2022-08-24 06:38:00 37.45 kg/m2 [facility] Systolic blood pressure 2022-08-23 17:02:00 122 mm[Hg] [facility] Diastolic blood pressure 2022-08-23 17:02:00 71 mm[Hg] [facility] Heart rate 2022-08-23 17:02:00 65 /min Un[facility] Body temperature 2022-08-23 17:02:00 36.5 Niurka [facility] Body height 2022-08-23 17:02:00 167.6 cm [facility] Body weight 2022-08-23 17:02:00 104.781 kg [facility] BMI 2022-08-23 17:02:00 37.28 kg/m2 [facility] Systolic blood pressure 2022-08-16 16:21:00 112 mm[Hg] [facility] Diastolic blood pressure 2022-08-16 16:21:00 67 mm[Hg] [facility] Heart rate 2022-08-16 16:21:00 71 /min Un[facility] Body temperature 2022-08-16 16:21:00 37.06 Niurka [facility] Body height 2022-08-16 16:21:00 167.6 cm [facility] Body weight 2022-08-16 16:21:00 105.597 kg [facility] BMI 2022-08-16 16:21:00 37.57 kg/m2 [facility] Systolic blood pressure 2022-08-05 16:58:00 109 mm[Hg] [facility] Diastolic blood pressure 2022-08-05 16:58:00 70 mm[Hg] [facility] Heart rate 2022-08-05 16:58:00 57 /min [facility] Body temperature 2022-08-05 16:58:00 37.06 Niurka [facility] Body height 2022-08-05 16:58:00 167.6 cm [facility] Body weight 2022-08-05 16:58:00 102.967 kg [facility] BMI 2022-08-05 16:58:00 36.64 kg/m2 [facility] Systolic blood pressure 2022-07-15 14:35:00 115 mm[Hg] [facility] Diastolic blood pressure 2022-07-15 14:35:00 75 mm[Hg] [facility] Heart rate 2022-07-15 14:35:00 72 /min [facility] Body temperature 2022-07-15 14:35:00 36.78 Niurka [facility] Respiratory rate 2022-07-15 14:35:00 18 /min [facility] Body height 2022-07-15 14:35:00 167.6 cm [facility] Body weight 2022-07-15 14:35:00 104.146 kg [facility] BMI 2022-07-15 14:35:00 37.06 kg/m2 [facility] Systolic blood pressure 2022-06-23 16:43:00 97 mm[Hg] [facility] Diastolic blood pressure 2022-06-23 16:43:00 58 mm[Hg] [facility] Heart rate 2022-06-23 16:43:00 57 /min [facility] Body temperature 2022-06-23 16:43:00 36.67 Niurka [facility] Body height 2022-06-23 16:43:00 167.6 cm [facility] Body weight 2022-06-23 16:43:00 102.967 kg [facility] BMI 2022-06-23 16:43:00 36.64 kg/m2 [facility] Oxygen saturation in Arterial blood by Pulse oximetry 2022-05-28 01:06:00 98 /min [facility] Systolic blood pressure 2022-05-28 01:06:00 135 mm[Hg] [facility] Diastolic blood pressure 2022-05-28 01:06:00 66 mm[Hg] [facility] Heart rate 2022-05-28 01:06:00 86 /min [facility] Body temperature 2022-05-28 01:06:00 37.33 Niurka [facility] Respiratory rate 2022-05-28 01:06:00 20 /min [facility] Body height 2022-05-28 01:06:00 167.6 cm [facility] Body weight 2022-05-28 01:06:00 103.42 kg [facility] BMI 2022-05-28 01:06:00 36.80 kg/m2 [facility] Systolic blood pressure 2022-05-26 15:17:00 122 mm[Hg] [facility] Diastolic blood pressure 2022-05-26 15:17:00 74 mm[Hg] [facility] Heart rate 2022-05-26 15:17:00 71 /min [facility] Body temperature 2022-05-26 15:17:00 36.78 Niurka [facility] Respiratory rate 2022-05-26 15:17:00 18 /min [facility] Body height 2022-05-26 15:17:00 165.1 cm [facility] Body weight 2022-05-26 15:17:00 102.513 kg [facility] BMI 2022-05-26 15:17:00 37.61 kg/m2 [facility] Systolic blood pressure 2022-05-13 18:56:00 116 mm[Hg] [facility] Diastolic blood pressure 2022-05-13 18:56:00 70 mm[Hg] [facility] Heart rate 2022-05-13 18:56:00 80 /min [facility] Body temperature 2022-05-13 18:56:00 37.39 Niurka [facility] Body height 2022-05-13 18:56:00 167.6 cm [facility] Body weight 2022-05-13 18:56:00 104.055 kg [facility] BMI 2022-05-13 18:56:00 37.05 kg/m2 [facility] Systolic blood pressure 2022-05-02 04:00:00 125 mm[Hg] [facility] Diastolic blood pressure 2022-05-02 04:00:00 56 mm[Hg] [facility] Heart rate 2022-05-02 04:00:00 65 /min [facility] Body temperature 2022-05-02 04:00:00 36.72 Niurka [facility] Respiratory rate 2022-05-02 04:00:00 20 /min [facility] Body height 2022-05-02 04:00:00 167.6 cm [facility] Body weight 2022-05-02 04:00:00 104.781 kg [facility] BMI 2022-05-02 04:00:00 37.30 kg/m2 [facility] Systolic blood pressure 2022-04-28 16:33:00 129 mm[Hg] [facility] Diastolic blood pressure 2022-04-28 16:33:00 74 mm[Hg] [facility] Heart rate 2022-04-28 16:33:00 74 /min [facility] Body temperature 2022-04-28 16:33:00 37.06 Niurka [facility] Respiratory rate 2022-04-28 16:33:00 18 /min [facility] Body height 2022-04-28 16:33:00 167.6 cm [facility] Body weight 2022-04-28 16:33:00 104.872 kg [facility] BMI 2022-04-28 16:33:00 37.32 kg/m2 [facility] Systolic blood pressure 2022-04-12 18:39:00 127 mm[Hg] [facility] Diastolic blood pressure 2022-04-12 18:39:00 79 mm[Hg] [facility] Heart rate 2022-04-12 18:39:00 75 /min [facility] Body temperature 2022-04-12 18:39:00 36.83 Niurka [facility] Respiratory rate 2022-04-12 18:39:00 18 /min [facility] Body height 2022-04-12 18:39:00 167.6 cm [facility] Body weight 2022-04-12 18:39:00 105.688 kg [facility] BMI 2022-04-12 18:39:00 37.61 kg/m2 [facility] Oxygen saturation in Arterial blood by Pulse oximetry 2022-04-12 18:39:00 100 /min [facility] BP Diastolic 2020-09-22 00:00:00 72 mm[Hg] [facility] Height 2020-09-22 00:00:00 67 [in_i] [facility] BMI (Body Mass Index) 2020-09-22 00:00:00 37.6 kg/m2 [facility] BP Systolic 2020-09-22 00:00:00 106 mm[Hg] [facility] Body Weight 2020-09-22 00:00:00 3840 [oz_av] [facility] Procedures Procedure Date / Time Performed Performing Clinician Source electrocardiogram, routine ECG, 12 leads min 2024-04-25 00:00:00 [facility] FLU VACC ([id number]), 6 MO-64 YRS, .5ML, IM, QUAD (FLUCELVAX) 2023-09-28 15:55:37 Giancarlo Morgan [facility] DISCLOSURE AND CONSENT MEDICAL & SURGICAL PROCEDURES - FEM[facility] 2023-06-28 05:01:00 Doctor Unassigned, Bolan [facility] ASSIGNMENT OF BENEFITS 2023-03-16 14:33:03 Docto r Unassigned, Bolan [facility] DISCLOSURE AND CONSENT MEDICAL & SURGICAL PROCEDURES - [facility] 2023-01-18 05:01:00 Doctor Unassigned, Bolan [facility] POCT TEST 2023-01-18 00:00:00 Giancarlo Morgan [facility] FL TIME OR (NON-REPORTABLE) 2022-11-23 16:55:01 Malorie, [facility] FL TIME OR (NON-REPORTABLE) 2022-11-23 16:55:01 Calvert, [facility] CHOLECYSTECTOMY LAPAROSCOPY WITH CHOLANGIOGRAM 2022-11-23 15:13:00 Malorie, [facility] BASIC METABOLIC PANEL (NA, K, CL, CO2, GLUCOSE, BUN, CREATININE, CA) 2022-11-23 10:43:00 Ar Blevins [facility] CBC WITH DIFF 2022-11-23 10:43:00 Ar Blevins [facility] BASIC METABOLIC PANEL (NA, K, CL, CO2, GLUCOSE, BUN, CREATININE, CA) 2022-11-23 10:43:00 Ar Blevins [facility] CBC WITH DIFF 2022-11-23 10:43:00 Ar Blevins [facility] LIPASE 2022-11-22 09:47:00 Ar Blevins [facility] BASIC METABOLIC PANEL (NA, K, CL, CO2, GLUCOSE, BUN, CREATININE, CA) 2022-11-22 09:47:00 Ar Blevins [facility] CBC WITH DIFF 2022-11-22 09:47:00 Ar Blevins Un [facility] LIPASE 2022-11-22 09:47:00 Ar Blevins [facility] BASIC METABOLIC PANEL (NA, K, CL, CO2, GLUCOSE, BUN, CREATININE, CA) 2022-11-22 09:47:00 Ar Blevins [facility] CBC WITH DIFF 2022-11-22 09:47:00 [facility] 2022-11-20 09:52:00 Ron Tavares [facility] HEPATIC FUNCTION PANEL (54033) (ALB,T.PRO,BILI T,BU/BC,ALT,AST,ALK PHOS) 2022-11-20 09:52:00 Ron Tavares. [facility] BASIC METABOLIC PANEL (NA, K, CL, CO2, GLUCOSE, BUN, CREATININE, CA) 2022-11-20 09:52:00 Ron Tavares. [facility] LIPID PANEL (76271)(TOTAL CHOLESTEROL, TRIGLYCERIDES, HDL) 2022-11-20 09:52:00 Ron Tavares. [facility] CBC WITH DIFF 2022-11-20 09:52:00 [facility] 2022-11-20 09:52:00 Rno Tavares Uni [facility] HEPATIC FUNCTION PANEL (86227) (ALB,T.PRO,BILI T,BU/BC,ALT,AST,ALK PHOS) 2022-11-20 09:52:00 Ron Tavares. [facility] BASIC METABOLIC PANEL (NA, K, CL, CO2, GLUCOSE, BUN, CREATININE, CA) 2022-11-20 09:52:00 Ron Tavares. [facility] LIPID PANEL ([id number])(TOTAL CHOLESTEROL, TRIGLYCERIDES, HDL) 2022-11-20 09:52:00 Ron Tavares. [facility] CBC WITH DIFF 2022-11-20 09:52:00 [facility] LACTATE DEHYDROGENASE 2022-11-19 19:34:00 Herman Calvert [facility] LACTATE DEHYDROGENASE 2022-11-19 19:34:00 Herman Calvert [facility] US GALL BLADDER 2022-11-19 16:57:59 Michael Chaves [facility] US GALL BLADDER 2022-11-19 16:57:59 Michael Chaves [facility] LIPASE 2022-11-19 16:31:00 Michael Chaves [facility] COMP. METABOLIC PANEL (42951) 2022-11-19 16:31:00 Michael Chaves [facility] CBC WITH DIFF 2022-11-19 16:31:00 Michael Chaves [facility] LIPASE 2022-11-19 16:31:00 Michael Chaves [facility] COMP. METABOLIC PANEL ([id number]) 2022-11-19 16:31:00 Michael Chaves [facility] CBC WITH DIFF 2022-11-19 16:31:00 Michael Chaves [facility] POCT TEST 2022-11-19 16:27:00 Anastacio, Andr sukhdev [facility] POCT TEST 2022-11-19 16:27:00 Anastacio, Andr [facility] URINALYSIS 2022-11-19 16:20:00 Anastacio, [facility] URINALYSIS 2022-11-19 16:20:00 Anastacio [facility] CONSENT/REFUSAL FOR DIAGNOSIS AND TREATMENT 2022-11-19 16:02:28 Doctor Unassigned, Bolan [facility] CONSENT/REFUSAL FOR DIAGNOSIS AND TREATMENT 2022-11-19 16:02:28 Doctor Unassigned, Bolan [facility] HOSPITAL ADMISSION 2022-11-19 06:01:00 Doctor Un assigned, Bolan [facility] HOSPITAL ADMISSION 2022-11-19 06:01:00 Doctor Un assigned, Bolan [facility] CBC WITH DIFF 2022-10-06 09:54:00 Giancarlo Morgan [facility] SGOT (ASPARTATE AMINO TRANSFER) 2022-10-05 04:05:00 Giancarlo Morgan [facility] CREATININE 2022-10-05 04:05:00 Giancarlo Morgan [facility] ALANINE AMINO TRANSFERASE(SGPT 2022-10-05 04:05:00 Giancarlo Morgan [facility] LACTATE DEHYDROGENASE 2022-10-05 04:05:00 Giancarlo Morgan [facility] URIC ACID 2022-10-05 04:05:00 Eddie Giancarlo Doherty [facility] CBC WITH DIFF 2022-10-05 04:05:00 Giancarlo Morgan [facility] URINALYSIS 2022-10-05 04:05:00 Giancarlo Morgan [facility] PROTEIN CREAT RATIO URINE RANDOM 2022-10-05 04:05:00 Giancarlo Morgan [facility] CENTRAL NEURAXIAL BLOCK 2022-10-05 02:03:36 Zunilda Harvey [facility] HB ABO GROUPING 2022-10-04 16:30:00 Giancarlo Morgan [facility] RHO (D) IMMUNE GLOBULIN 2022-10-04 16:30:00 Giancarlo Morgan [facility] HOSPITAL ADMISSION 2022-10-04 06:01:00 Doctor Un assigned, Bolan [facility] ASSIGNMENT OF BENEFITS 2022-10-01 15:43:30 Docto r Unassigned, Bolan [facility] NON-STRESS TEST 2022-10-01 01:50:14 Giancarlo Morgan [facility] NON-STRESS TEST 2022-09-28 20:55:23 Alvina Singleton [facility] ASSIGNMENT OF BENEFITS 2022-09-22 05:51:07 Docto r Unassigned, Bolan [facility] CONSENT/REFUSAL FOR DIAGNOSIS AND TREATMENT 2022-09-22 05:49:59 Doctor Unassigned, Bolan [facility] NON-STRESS TEST 2022-09-21 18:02:29 Giancarlo Morgan [facility] POCT URINALYSIS W/O SPECIFIC GRAVITY 2022-09-21 00:00:00 Giancarlo Morgan [facility] NON-STRESS TEST 2022-09-16 17:39:14 Giancarlo Morgan [facility] NON-STRESS TEST 2022-09-13 17:38:55 Giancarlo Morgan [facility] DSU PRE-OP 2022-09-13 06:01:00 Doctor Unass igned, Bolan [facility] POCT URINALYSIS W/O SPECIFIC GRAVITY 2022-09-13 00:00:00 Giancarlo Morgan [facility] NON-STRESS TEST 2022-09-09 16:30:29 Giancarlo Morgan [facility] NON-STRESS TEST 2022-09-06 17:03:46 Giancarlo Morgan [facility] POCT URINALYSIS W/O SPECIFIC GRAVITY 2022-09-06 00:00:00 Giancarlo Morgan [facility] NON-STRESS TEST 2022-09-02 16:18:15 Giancarlo Morgan [facility] NON-STRESS TEST 2022-08-30 16:45:12 Giancarlo Morgan [facility] NON-STRESS TEST 2022-08-26 17:19:09 Giancarlo Morgan [facility] ASSIGNMENT OF BENEFITS 2022-08-24 06:16:58 Docto r Unassigned, Bolan [facility] CONSENT/REFUSAL FOR DIAGNOSIS AND TREATMENT 2022-08-24 06:16:36 Doctor Unassigned, Bolan [facility] NON-STRESS TEST 2022-08-23 17:32:00 Giancarlo Morgan [facility] POCT URINALYSIS W/O SPECIFIC GRAVITY 2022-08-23 00:00:00 Giancarlo Morgan [facility] NON-STRESS TEST 2022-08-16 17:33:08 Giancarlo Morgan [facility] POCT URINALYSIS W/O SPECIFIC GRAVITY 2022-08-16 00:00:00 Giancarlo Morgan [facility] TDAP VACCINE, >11 YRS, IM 2022-08-05 17:01:24 Kelly Morgan [facility] POCT URINALYSIS W/O SPECIFIC GRAVITY 2022-08-05 00:00:00 Giancarlo Morgan [facility] SARS-COV-2 COVID-19 NADJA-SUCROSE VACCINE 12 YRS+, BIVALENT 0.3ML, IM, (PFIZER HILTON TOP BOOSTER) 2022-07-15 15:47:46 Doctor Unassigned, Bolan [facility] POCT URINALYSIS W/O SPECIFIC GRAVITY 2022-07-15 00:00:00 Alison Singleton [facility] FLU VACC (), 6 MO-64 YRS, .5ML, IM, QUAD (FLUCELVAX) 2022-06-23 17:09:21 Giancarol Morgan [facility] POCT URINALYSIS W/O SPECIFIC GRAVITY 2022-06-23 00:00:00 Giancarlo Morgan [facility] URINALYSIS 2022-05-28 02:35:00 Giancarlo Morgan [facility] CONSENT/REFUSAL FOR DIAGNOSIS AND TREATMENT 2022-05-28 00:34:33 Doctor Unassigned, Bolan [facility] POCT URINALYSIS W/O SPECIFIC GRAVITY 2022-05-26 00:00:00 Areli [facility] CONSENT/REFUSAL FOR DIAGNOSIS AND TREATMENT 2022-05-02 03:46:15 Doctor Unassigned, Bolan [facility] POCT URINALYSIS W/O SPECIFIC GRAVITY 2022-04-28 00:00:00 Giancarlo Morgan [facility] GALV ONLY - VAGINAL PATHOGENS BY NUCLEIC ACID TESTING 2022-04-12 19:19:00 Giancarlo Morgan [facility] POCT URINALYSIS 2022-04-12 18:58:00 Giancarlo Morgan [facility] SCANNED LAB RESULTS 2022-03-31 05:01:00 Doctor Ifrah hernandez, [facility] Eustachian Tuboplasty [facility] Encounters Start Date/Time End Date/Time Encounter Type Admission Type Attending Clinicians Care Facility Care Department Encounter ID Source 2022-08-24 03:51:02 Outpatient P [facility] [id number] [facility] 2024-05-09 00:00:00 2024-05-09 00:00:00 Elizabeth Gonzales APRN-AGRICULTURAL SERVICE TECHNICIAN-Marcia C: [address], [address], [place] [address] , Ph. [facility] [phone] [facility] l [facility] 2024-04-25 00:00:00 2024-04-25 00:00:00 Elizabeth Gonzales APRN-AGRICULTURAL SERVICE TECHNICIAN-B C: [address], [address], [place] [address] , Ph. [facility] [address] [facility] H[facility] 2024-01-20 00:00:00 2024-01-20 00:00:00 Telephone Helms, Thea Leo [facility] 1.0.114 350.1.13.10 4.2.7.2.686 [id number] [facility] 2023-09-28 09:30:00 2023-09-28 09:54:13 Outpatient R GIANCARLO MORGAN [facility] [id number] [facility] 2023-09-28 09:30:00 2023-09-28 09:54:13 [facility] 1.840.114 350.1.13.10 4.2.7.2.686 [id number] [facility] 2023-06-28 09:00:00 2023-06-28 09:16:18 Outpatient R ALISON SINGLETON [facility] [id number] [facility] 2023-06-28 09:00:00 2023-06-28 09:16:18 [facility] 1.840.114 350.1.13.10 4.2.7.2.686 [id number] [facility] 2023-06-28 00:00:00 2023-06-28 00:00:00 Orders Only Doctor Unassigned, Bolan [facility] 1..114 350.1.13.10 4.2.7.2.686 [id number] [facility] 2023-03-16 09:30:00 2023-03-16 09:56:06 Outpatient R GIANCARLO MORGAN [facility] [id number] [facility] 2023-03-16 09:30:00 2023-03-16 09:56:06 Office Visit Giancarlo Morgan [facility] 1.2840.114 350.1.13.10 4.2.7.2.686 [id number] [facility] 2023-03-16 00:00:00 2023-03-16 00:00:00 Orders Only Doctor Unassigned, Bolan [facility] 1.20.114 350.1.13.10 4.2.7.2.686 [id number] [facility] 2023-01-18 14:30:00 2023-01-18 15:25:51 Outpatient R GIANCARLO MORGAN [facility] [id number] [facility] 2023-01-18 14:30:00 2023-01-18 15:25:51 [facility]..114 350.1.13.10 4.2.7.2.686 [id number] [facility] 2023-01-18 00:00:00 2023-01-18 00:00:00 Orders Only Doctor Unassigned, Bolan [facility] 1.20.114 350.1.13.10 4.2.7.2.686 [id number] [facility] 2023-01-12 00:00:00 2023-01-12 00:00:00 Telephone Giancarlo Morgan [facility] 1.20.114 350.1.13.10 4.2.7.2.686 [id number] [facility] 2022-12-21 13:15:00 2022-12-21 13:15:00 Outpatient R EDDIE GIANCARLO [facility] [id number] [facility] 2022-12-16 11:15:00 2022-12-16 11:15:00 Routine Visit Giancarlo Morgan [facility] 1.840.114 350.1.13.10 4.2.7.2.686 [id number] [facility] 2022-12-16 11:15:00 2022-12-16 11:11:03 Outpatient R EDDIE GIANCARLO [facility] [id number] [facility] 2022-12-08 13:00:00 2022-12-08 13:35:57 Outpatient JENNIFER MESA [facility] [id number] [facility] 2022-12-08 00:00:00 2022-12-08 00:00:00 Outpatient JAMARIREEN_AMBROCIO HILARIOChelo [facility] [id number] [facility] Outre h Program 2022-11-24 00:00:00 2022-11-24 00:00:00 Transition of Care Lola Wilhelm 1..840.114 350.1.13.10 4.2.7.2.686 [id number] [facility] 2022-11-19 10:08:00 2022-11-23 16:05:00 Inpatient X MIKE JACOBS [facility] [id number] [facility] 2022-11-19 10:08:00 2022-11-23 16:05:00 Hospital Encounter Yumiko Rucker, Mike Funk [facility] 1..840.114 350.1.13.10 4.2.7.2.686 [id number] [facility] 2022-11-23 14:15:00 2022-11-23 14:15:00 Outpatient R GIANCARLO MORGAN [facility] [id number] [facility] 2022-11-23 10:45:00 2022-11-23 13:46:00 Surgery Jennifer Calvert [facility] 1..840.114 350.1.13.10 4.2.7.2.686 [id number] [facility] 2022-10-25 11:00:00 2022-10-25 11:00:00 Outpatient GIANCARLO BUSTILLO [facility] [id number] [facility] 2022-10-19 00:00:00 2022-10-19 00:00:00 Outpatient ERICKSON_R [facility] [id number] [facility] 2022-10-19 00:00:00 2022-10-19 00:00:00 Outpatient [facility]ICKSON[facility] [id number] [facility] 2022-10-18 00:00:00 2022-10-18 00:00:00 Outpatient ERICKSON[facility]R [facility] [id number] [facility] 2022-10-18 00:00:00 2022-10-18 00:00:00 Abdiel Sanabria, DO: [address], [facility], [place] [address] , Ph. [phone] [facility] - [facility], [address] [place] [id number] [facility] 2022-10-04 09:35:00 2022-10-06 20:13:00 Inpatient P GIANCARLO MORGAN [facility] [id number] [facility] 2022-10-04 09:35:00 2022-10-06 20:13:00 Hospital Encounter Giancarlo Morgan [facility] 1..840.114 350.1.13.10 4.2.7.2.686 [id number] [facility] 2022-10-06 00:00:00 2022-10-06 00:00:00 Telephone Giancarlo Morgan [facility] 1.2840.114 350.1.13.10 4.2.7.2.686 [id number] [facility] 2022-10-05 20:02:45 2022-10-05 20:02:45 Anesthesia Event Summer Bae [facility] 1.2.840.114 350.1.13.10 4.2.7.2.686 [id number] [facility] 2022-10-04 19:23:00 2022-10-05 10:24:00 Anesthesia Event Skip Harvey [facility] 1.2840.114 350.1.13.10 4.2.7.2.686 [id number] [facility] 2022-10-04 00:00:00 2022-10-04 00:00:00 Orders Only Doctor Unassigned, Bolan [facility] 1.20.114 350.1.13.10 4.2.7.2.686 [id number] [facility] 2022-10-01 12:30:00 2022-10-01 12:45:00 Explosive Ordnance Manager Visit Pob, Adc Lab Main Giancarlo Morgan [facility] 1.2.840.114 350.1.13.10 4.2.7.2.686 [id number] [facility] 2022-10-01 12:30:00 2022-10-01 12:30:00 Outpatient R GIANCARLO MORGAN [facility] [id number] [facility] 2022-10-01 00:00:00 2022-10-01 00:00:00 Orders Only Doctor Unassigned, Bolan [facility] 1.2.840.114 350.1.13.10 4.2.7.2.686 [id number] [facility] 2022-09-30 11:00:00 2022-09-30 11:23:48 Outpatient U GIANCARLO MORGAN [facility] [id number] [facility] 2022-09-30 11:00:00 2022-09-30 11:23:48 Routine Visit Room, [facility] 1.2.840.114 350.1.13.10 4.2.7.2.686 [id number] [facility] 2022-09-28 11:00:00 2022-09-28 11:33:57 Outpatient R GIANCARLO MORGAN [facility] [id number] [facility] 2022-09-28 11:00:00 2022-09-28 11:33:57 Routine Visit Room, [facility] Bruno Wharton [facility]lo [facility] 1.2.840.114 350.1.13.10 4.2.7.2.686 [id number] [facility] 2022-09-22 00:07:00 2022-09-22 01:20:00 Outpatient P GIANCARLO MORGAN [facility] [id number] [facility] 2022-09-22 00:07:00 2022-09-22 01:20:00 Hospital Encounter Giancarlo Morgan [facility] 1.2.840.114 350.1.13.10 4.2.7.2.686 [id number] [facility] 2022-09-21 11:00:00 2022-09-21 11:40:55 Outpatient R BRUNO WHARTON [facility] [id number] [facility] 2022-09-21 11:00:00 2022-09-21 11:40:55 Routine Visit Room, [facility] Deshaun [facility] 1.2.840.114 350.1.13.10 4.2.7.2.686 [id number] [facility] 2022-09-21 00:00:00 2022-09-21 00:00:00 Patient Secure Msg Doctor Unassigned, [place] 1.2.840.114 350.1.13.10 4.2.7.2.686 [id number] [facility] 2022-09-16 10:00:00 2022-09-16 11:06:56 [facility] [id number] [facility] 2022-09-16 10:00:00 2022-09-16 11:06:56 Routine Visit Room, [facility] Giancarlo [facility] 1.2.840.114 350.1.13.10 4.2.7.2.686 [id number] [facility] 2022-09-14 11:30:00 2022-09-14 12:00:00 Explosive Ordnance Manager Visit Ultrasound, [facility] Deshaun dykes [facility] 1.2.840.114 350.1.13.10 4.2.7.2.686 [id number] [facility] 2022-09-14 11:30:00 2022-09-14 11:30:00 Outpatient P BRUNO WHARTON [facility] [id number] [facility] 2022-09-13 09:00:00 2022-09-13 10:17:21 Outpatient GIANCARLO BUSTILLO [facility] [id number] [facility] 2022-09-13 09:00:00 2022-09-13 10:17:21 Routine Visit Room, [facility] 1.2.840.114 350.1.13.10 4.2.7.2.686 [id number] [facility] 2022-09-13 00:00:00 2022-09-13 00:00:00 Orders Only Doctor Unassigned, Bolan [facility] 1.2.840.114 350.1.13.10 4.2.7.2.686 [id number] 009 [id number] [facility] 2022-09-09 10:00:00 2022-09-09 10:15:00 Routine Visit Room, [facility] 1.2840.114 350.1.13.10 4.2.7.2.686 [id number] 134 [id number] [facility] 2022-09-09 10:00:00 2022-09-09 10:00:00 Outpatient R [facility] [id number] [facility] 2022-09-08 00:00:00 2022-09-08 00:00:00 [facility] 1.2840.114 350.1.13.10 4.2.7.2.686 [id number] 134 [id number] [facility] 2022-09-08 00:00:00 2022-09-08 00:00:00 Patient Secure Msg Doctor Unassigned, Bolan [facility] 1.20.114 350.1.13.10 4.2.7.2.686 [id number] 019 [id number] [facility] 2022-09-06 10:00:00 2022-09-06 10:42:43 [id number] 2022-09-06 10:00:00 2022-09-06 10:42:43 Routine Visit Room, [facility] Eddie [facility] NAL [facility]ILDING 1.2.840.114 350.1.13.10 4.2.7.2.686 [id number] 134 [id number] [facility] 2022-09-03 00:00:00 2022-09-03 00:00:00 [facility] 1.2.840.114 350.1.13.10 4.2.7.2.686 [id number] 134 [id number] [facility] 2022-09-02 10:00:00 2022-09-02 10:18:29 Routine Visit Room, [facility] Eddie [facility] NAL BUILDING 1.2.840.114 350.1.13.10 4.2.7.2.686 [id number] 134 [id number] [facility] 2022-09-02 10:00:00 2022-09-02 10:18:29 [facility] [id number] [facility] 2022-08-30 10:00:00 2022-08-30 10:43:56 Outpatient R GIANCARLO MORGAN [facility] [id number] [facility] 2022-08-30 10:00:00 2022-08-30 10:43:56 Routine Visit Room, [facility] Eddie [facility] BUILDING 1.2.840.114 350.1.13.10 4.2.7.2.686 [id number] 134 [id number] [facility] 2022-08-26 10:00:00 2022-08-26 10:15:00 Routine Visit Room, [facility] 1.2.840.114 350.1.13.10 4.2.7.2.686 [id number] 134 [id number] [facility] 2022-08-26 10:00:00 2022-08-26 10:00:00 Outpatient R GIANCARLO MORGAN [facility] [id number] [facility] 2022-08-24 11:00:00 2022-08-24 11:00:00 Outpatient R [facility] [id number] [facility] 2022-08-24 00:26:00 2022-08-24 02:58:00 Outpatient P GIANCARLO MORGAN [facility] [id number] [facility] 2022-08-24 00:26:00 2022-08-24 02:58:00 Emergency Yahaira Crouch Vien [facility] 1..840.114 350.1.13.10 4.2.7.2.686 [id number] [id number] [facility] 2022-08-24 00:00:00 2022-08-24 00:00:00 Orders Only Doctor Unassigned, Bolan [facility] 1..840.114 350.1.13.10 4.2.7.2.686 [id number] [facility] 2022-08-23 11:00:00 2022-08-23 11:28:55 Outpatient R GIANCARLO MORGAN [facility] [id number] [facility] 2022-08-23 11:00:00 2022-08-23 11:28:55 Routine Visit Room, [facility] Giancarlo Morgan [facility] PROFESSIO [facility] 1..840.114 350.1.13.10 4.2.7.2.686 [id number] 134 [id number] [facility] 2022-08-18 14:00:00 2022-08-18 14:00:00 Outpatient R ALISON SINGLETON [facility] [id number] [facility] 2022-08-18 14:00:00 2022-08-18 14:00:00 Outpatient R [facility] [id number] [facility] 2022-08-17 11:30:00 2022-08-17 12:00:00 Explosive Ordnance Manager Visit Ultrasound, [facility] Deshaun Oksana Bruno dykes [facility] BUILDING 1.840.114 350.1.13.10 4.2.7.2.686 [id number] 134 [id number] [facility] 2022-08-17 11:30:00 2022-08-17 11:30:00 Outpatient P DESHAUN OKSANA BRUNO Dykes [facility] [id number] [facility] 2022-08-16 10:00:00 2022-08-16 10:55:23 [facility] [id number] [facility] 2022-08-16 10:00:00 2022-08-16 10:55:23 Routine Visit Room, [facility] 1.840.114 350.1.13.10 4.2.7.2.686 [id number] 134 [id number] [facility] 2022-08-16 00:00:00 2022-08-16 00:00:00 Patient Secure Msg Doctor Unassigned, Bolan [facility] .84.114 350.1.13.10 4.2.7.2.686 [id number] 019 [id number] [facility] 2022-08-05 11:00:00 2022-08-05 11:39:01 Outpatient R GIANCARLO MORGAN [facility] [id number] [facility] 2022-08-05 11:00:00 2022-08-05 11:39:01 Routine Visit Giancarlo [facility] 1..840.114 350.1.13.10 4.2.7.2.686 [id number] 134 [id number] [facility] 2022-07-29 00:00:00 2022-07-29 00:00:00 Patient Secure Msg Doctor Unassigned, Bolan [facility] 1.2840.114 350.1.13.10 4.2.7.2.686 [id number] 019 [id number] [facility] 2022-07-28 10:30:00 2022-07-28 10:45:00 Explosive Ordnance Manager Visit 2, Adc Lab Giancarlo Morgan [facility] BUILDING 1..114 350.1.13.10 4.2.7.2.686 [id number] [facility] 2022-07-28 10:30:00 2022-07-28 10:30:00 Outpatient R MORGANGIANCARLO [facility] [id number] [facility] 2022-07-23 00:00:00 2022-07-23 00:00:00 Telephone Morgan Giancarlo [facility] BUILDING 1.84.114 350.1.13.10 4.2.7.2.686 [id number] 134 [id number] [facility] 2022-07-21 08:45:00 2022-07-21 08:45:00 Outpatient R [facility] [id number] [facility] 2022-07-19 00:00:00 2022-07-19 00:00:00 Patient Secure Msg Doctor Unassigned, Bolan [facility] 1.2.114 350.1.13.10 4.2.7.2.686 [id number] 019 [id number] [facility] 2022-07-15 10:30:00 2022-07-15 10:40:00 Imm/Inj Visit Vaccine, Adc Family Medicine Alison Singleton [facility] BU[facility] 1.84.114 350.1.13.10 4.2.7.2.686 [id number] [facility] 2022-07-15 09:45:00 2022-07-15 10:19:56 Outpatient R ALISON SINGLETON [facility] [id number] [facility] 2022-07-15 09:45:00 2022-07-15 10:19:56 Routine Visit Alison Singleton [facility] 1.2.84.114 350.1.13.10 4.2.7.2.686 [id number] 134 [id number] [facility] 2022-06-29 15:00:00 2022-06-29 15:30:00 Explosive Ordnance Manager Visit Ultrasound, Adc Olivia Dumont [facility] 1.84.114 350.1.13.10 4.2.7.2.686 [id number] 134 [id number] [facility] 2022-06-29 15:00:00 2022-06-29 15:00:00 Outpatient P OLIVIA CHAUDHRY SHANNON [facility] [id number] [facility] 2022-06-28 00:00:00 2022-06-28 00:00:00 Patient Secure Msg Doctor Unassigned, Bolan [facility] 1..114 350.1.13.10 4.2.7.2.686 [id number] 019 [id number] [facility] 2022-06-23 11:15:00 2022-06-23 12:19:01 Outpatient R GIANCARLO MORGAN [facility] [id number] [facility] 2022-06-23 11:15:00 2022-06-23 12:19:01 Routine Visit Giancarlo Morgan [facility] 1.84.114 350.1.13.10 4.2.7.2.686 [id number] 134 [id number] [facility] 2022-06-21 00:00:00 2022-06-21 00:00:00 Nurse Triage Cassie Cortes [facility] 1..114 350.1.13.10 4.2.7.2.686 [id number] 019 [id number] [facility] 2022-06-21 00:00:00 2022-06-21 00:00:00 Patient Secure Msg Doctor Unassigned, Bolan [facility] 1.840.114 350.1.13.10 4.2.7.2.686 [id number] 019 [id number] [facility] 2022-06-18 09:00:00 2022-06-18 09:30:43 Outpatient JAK CASTRO [facility] [id number] [facility] 2022-06-18 09:00:00 2022-06-18 09:30:43 Telemedici ne Visit Marguerite Carlson Joseph W [facility] [employer] [facility] 1.84.114 350.1.13.10 4.2.7.2.686 [id number] [facility] 2022-06-09 00:00:00 2022-06-09 00:00:00 Telephone Giancarlo Morgan [facility] 1.840.114 350.1.13.10 4.2.7.2.686 [id number] 134 [id number] [facility] 2022-06-02 00:00:00 2022-06-02 00:00:00 Patient Secure Msg Doctor Unassigned, Bolan [facility] 1.84.114 350.1.13.10 4.2.7.2.686 [id number] 134 [id number] [facility] 2022-06-01 10:30:00 2022-06-01 11:44:56 Explosive Ordnance Manager Visit Ultrasound, Adc Timothy Lancaster [facility] 1..840.114 350.1.13.10 4.2.7.2.686 [id number] 134 [id number] [facility] 2022-06-01 10:30:00 2022-06-01 10:30:00 Outpatient P TIMOTHY HAWK [facility] [id number] [facility] 2022-06-01 00:00:00 2022-06-01 00:00:00 Case Management Giancarlo [facility] 1.2.840.114 350.1.13.10 4.2.7.2.686 [id number] 134 [id number] [facility] 2022-05-27 19:53:00 2022-05-27 22:05:00 Outpatient X EDDIE GIANCARLO [facility] [id number] [facility] 2022-05-27 19:53:00 2022-05-27 22:05:00 Emergency Giancarlo Morgan [facility] 1..840.114 350.1.13.10 4.2.7.2.686 [id number] 083 [id number] [facility] 2022-05-26 10:30:00 2022-05-26 10:37:13 Outpatient R ARELI [facility] [id number] [facility] 2022-05-26 10:30:00 2022-05-26 10:37:13 Routine Visit Alison Singleton [facility] 1.2.840.114 350.1.13.10 4.2.7.2.686 [id number] 134 [id number] [facility] 2022-05-26 00:00:00 2022-05-26 00:00:00 Telephone Giancarlo [facility] 1.2.840.114 350.1.13.10 4.2.7.2.686 [id number] 134 [id number] [facility] 2022-05-13 14:15:00 2022-05-13 14:15:00 Routine Visit Giancarlo [facility] 1.2.840.114 350.1.13.10 4.2.7.2.686 [id number] 134 [id number] [facility] 2022-05-13 14:15:00 2022-05-13 14:11:09 Outpatient Sherri GIANCARLO MORGAN [facility] [id number] [facility] 2022-05-13 00:00:00 2022-05-13 00:00:00 Patient Secure Msg Doctor Unassigned, Bolan [facility] 1.2.840.114 350.1.13.10 4.2.7.2.686 [id number] [id number] [facility] 2022-05-13 00:00:00 2022-05-13 00:00:00 Patient Secure Msg Jaja Marquez [facility] 1.2.840.114 350.1.13.10 4.2.7.2.686 [id number] 134 [id number] [facility] 2022-05-05 00:00:00 2022-05-05 00:00:00 Patient Secure Msg Doctor Unassigned, Bolan [facility] 1.2.840.114 350.1.13.10 4.2.7.2.686 [id number] 134 [id number] [facility] 2022-05-01 22:53:00 2022-05-01 23:22:00 Outpatient X DOT HILLIARD [facility] [id number] [facility] 2022-05-01 22:53:00 2022-05-01 23:22:00 Emergency Reena Art Vivian L [facility] 1.2.840.114 350.1.13.10 4.2.7.2.686 [id number] [id number] [facility] 2022-04-30 00:00:00 2022-04-30 00:00:00 Outpatient TARA_AMBROCIO ANGELO MOANASTASIIA [id number] To jennings [facility] Program 2022-04-29 11:15:00 2022-04-29 11:30:00 Explosive Ordnance Manager Visit 2, Adc Lab Giancarlo Morgan [facility] 1.2840.114 350.1.13.10 4.2.7.2.686 [id number] [facility] 2022-04-29 11:15:00 2022-04-29 11:15:00 Outpatient R EDDIE GIANCARLO [facility] [id number] [facility] 2022-04-28 11:15:00 2022-04-28 12:29:54 Outpatient R EDDIE [facility] [id number] [facility] 2022-04-28 11:15:00 2022-04-28 12:29:54 Routine Visit Giancarlo Morgan [facility] 1.2840.114 350.1.13.10 4.2.7.2.686 [id number] 134 [id number] [facility] 2022-04-17 00:00:00 2022-04-17 00:00:00 [facility] 1.2840.114 350.1.13.10 4.2.7.2.686 [id number] 019 [id number] [facility] 2022-04-14 00:00:00 2022-04-14 00:00:00 Telephone Giancarlo Morgan [facility] 1.2840.114 350.1.13.10 4.2.7.2.686 [id number] 134 [id number] [facility] 2022-04-14 00:00:00 2022-04-14 00:00:00 Patient Secure Msg Doctor Unassigned, Bolan [facility] 1.2840.114 350.1.13.10 4.2.7.2.686 [id number] 134 [id number] [facility] 2022-04-13 00:00:00 2022-04-13 00:00:00 Case Management PaulAlison wiggins [facility] 1.2.840.114 350.1.13.10 4.2.7.2.686 [id number] 134 [id number] [facility] 2022-04-12 13:45:00 2022-04-12 14:24:34 [facility] [id number] [facility] 2022-04-12 13:45:00 2022-04-12 14:24:34 Routine Visit Giancarlo Morgan [facility] BUILDING 1.2.840.114 350.1.13.10 4.2.7.2.686 [id number] 134 [id number] [facility] 2022-04-12 13:45:00 2022-04-12 14:24:34 Outpatient R GIANCARLO MORGAN [facility] [id number] [facility] 2022-04-12 00:00:00 2022-04-12 00:00:00 Telephone Giancarlo oMrgan [facility] BUILDING 1.2.840.114 350.1.13.10 4.2.7.2.686 [id number] 134 [id number] [facility] 2022-04-08 00:00:00 2022-04-08 00:00:00 Telephone Giancarlo Morgan [facility] BUILDING 1.2.840.114 350.1.13.10 4.2.7.2.686 [id number] 134 [id number] [facility] 2022-04-08 00:00:00 2022-04-08 00:00:00 Telephone PaulAlison wiggins [facility] BUILD[facility] 1.2.840.114 350.1.13.10 4.2.7.2.686 [id number] 134 [id number] [facility] 2022-04-07 00:00:00 2022-04-07 00:00:00 Telephone Alison Singleton [facility] BU[facility] 1.2.840.114 350.1.13.10 4.2.7.2.686 [id number] 134 [id number] [facility] 2022-03-31 10:15:00 2022-03-31 10:30:00 Explosive Ordnance Manager Visit 2, Adc Lab Areli Alison [facility] BUILDING 1.2.840.114 350.1.13.10 4.2.7.2.686 [id number] 353 [id number] [facility] 2022-03-31 09:00:00 2022-03-31 09:50:05 Outpatient R KAVONJOSE ANGEL [facility] [id number] [facility] 2022-03-31 09:00:00 2022-03-31 09:50:05 Routine Visit Alison Singleton [facility] 1.2.840.114 350.1.13.10 4.2.7.2.686 [id number] 134 [id number] [facility] 2022-03-31 00:00:00 2022-03-31 00:00:00 Orders Only Doctor Unassigned, Bolan [facility] 1.2840.114 350.1.13.10 4.2.7.2.686 [id number] [facility] 2022-03-30 11:30:00 2022-03-30 11:30:00 [facility] [id number] [facility] 2022-03-19 09:30:00 2022-03-19 09:45:00 Explosive Ordnance Manager Visit 2, Adc Lab Giancarlo Morgan [facility] BUILDING 1.2.840.114 350.1.13.10 4.2.7.2.686 [id number] 353 [id number] [facility] 2022-03-19 09:30:00 2022-03-19 09:30:00 Outpatient R GIANCARLO MORGAN [facility] [id number] [facility] 2022-03-19 09:30:00 2022-03-19 09:30:00 Outpatient R GIANCARLO MORGAN [facility] [id number] [facility] 2022-02-26 10:45:00 2022-02-26 11:00:00 Explosive Ordnance Manager Visit 2, Adc Lab [facility]lo [facility] 1.2.840.114 350.1.13.10 4.2.7.2.686 [id number] [facility] 2022-02-26 10:45:00 2022-02-26 10:45:00 Outpatient R EDDIE [facility] [id number] [facility] 2022-02-26 10:45:00 2022-02-26 10:45:00 [facility] [id number] [facility] 2022-02-26 00:00:00 2022-02-26 00:00:00 Case Management Giancarlo Morgan [facility] 1..840.114 350.1.13.10 4.2.7.2.686 [id number] 134 [id number] [facility] 2022-02-26 00:00:00 2022-02-26 00:00:00 Telephone [facility]carlo [facility] 1..840.114 350.1.13.10 4.2.7.2.686 [id number] 134 [id number] [facility] 2022-02-25 15:30:00 2022-02-25 15:30:00 Outpatient MARY ESCALONA [facility] [id number] [facility] 2022-02-25 15:30:00 2022-02-25 15:30:00 Outpatient R MARY CHAUDHRY [facility] [id number] [facility] 2022-02-25 13:15:00 2022-02-25 14:16:16 Routine Visit Giancarlo Morgan [facility] 1.2.840.114 350.1.13.10 4.2.7.2.686 [id number] 134 [id number] [facility] 2022-02-25 00:00:00 2022-02-25 00:00:00 Orders Only Doctor Unassigned, Bolan [facility] 1.2.840.114 350.1.13.10 4.2.7.2.686 [id number] [facility] 2022-02-18 11:30:00 2022-02-18 11:45:00 Explosive Ordnance Manager Visit 2, Adc Lab Giancarlo [facility] 1.2.840.114 350.1.13.10 4.2.7.2.686 [id number] 353 [id number] [facility] 2022-02-18 10:00:00 2022-02-18 10:55:15 Initial Visit Giancarlo Morgan [facility] 1.2.840.114 350.1.13.10 4.2.7.2.686 [id number] 134 [id number] [facility] 2022-02-18 10:00:00 2022-02-18 10:55:15 Outpatient R GIANCARLO MORGAN [facility] [id number] [facility] 2022-02-15 00:00:00 2022-02-15 00:00:00 Telephone Giancarlo Morgan [facility] 1.2.840.114 350.1.13.10 4.2.7.2.686 [id number] 134 [id number] [facility] 2022-02-14 13:21:00 2022-02-14 15:34:00 [facility] 1.2.840.114 350.1.13.10 4.2.7.2.686 [id number] [facility] 2022-02-14 13:21:00 2022-02-14 15:34:00 [facility] [id number] [facility] 2022-02-14 00:00:00 2022-02-14 00:00:00 Orders Only Doctor Unassigned, Bolan [facility] 1.2.840.114 350.1.13.10 4.2.7.2.686 [id number] [facility] 2022-02-08 08:30:00 2022-02-08 08:45:00 Explosive Ordnance Manager Visit 2, Adc Lab Areli [facility] BUILDING 1..840.114 350.1.13.10 4.2.7.2.686 [id number] [facility] 2022-02-08 08:30:00 2022-02-08 08:30:00 Outpatient R [facility] [id number] [facility] 2022-02-08 08:30:00 2022-02-08 08:30:00 Outpatient R ARELI [facility] [id number] [facility] 2022-02-08 08:30:00 2022-02-08 08:30:00 Outpatient R ARELI [facility] [id number] [facility] 2022-02-06 08:00:00 2022-02-06 08:15:00 Explosive Ordnance Manager Visit Pob, Adc Lab Main Areli [facility] 1.2.840.114 350.1.13.10 4.2.7.2.686 [id number] [facility] 2022-02-06 08:00:00 2022-02-06 08:00:00 Outpatient ALISON HARVEY [facility] [id number] [facility] 2022-02-06 08:00:00 2022-02-06 08:00:00 Outpatient ALISON HARVEY [facility] [id number] [facility] 2022-02-04 11:30:00 2022-02-04 11:45:00 Explosive Ordnance Manager Visit 2, Adc Lab Areli [facility] 1..840.114 350.1.13.10 4.2.7.2.686 [id number] [facility] 2022-02-04 11:30:00 2022-02-04 11:30:00 [facility] [id number] [facility] 2022-02-04 10:30:00 2022-02-04 11:22:53 [facility] [id number] [facility] 2022-02-04 10:30:00 2022-02-04 11:22:53 Outpatient Sherri SINGLETON [facility] [id number] [facility] 2022-02-04 10:30:00 2022-02-04 11:00:00 Office Visit Areli [facility] 1..840.114 350.1.13.10 4.2.7.2.686 [id number] 134 [id number] [facility] 2022-02-04 00:00:00 2022-02-04 00:00:00 Orders Only Doctor Unassigned, Bolan [facility] 1..840.114 350.1.13.10 4.2.7.2.686 [id number] [facility] 2021-10-21 04:44:00 2021-10-21 04:44:00 Outpatient LEANDRA ANGELO [id number] [facility] 2020-10-09 01:27:00 2020-10-09 01:27:00 Outpatient ERICKSON_R [facility] [id number] [address] [facility] 2020-09-25 12:46:00 2020-09-25 12:46:00 Outpatient ERICKSON_R [facility] [id number] [facility] 2020-09-22 03:34:00 2020-09-22 03:34:00 Outpatient ERICKSON_R [facility] [id number] [facility] 2020-09-22 00:00:00 2020-09-22 00:00:00 Outpatient Abdiel Sanabria [facility] [id number] 00:00:00 2020-09-22 00:00:00 Abdiel Sanabria, DO: [address], [place] [address] , Ph. [facility], DR. SANABRIA [id number] [facility] 2020-08-28 00:00:00 2020-08-28 00:00:00 Abdiel Sanabria, DO: [address], [place] [address] , Ph. [phone] [facility], DR. SANABRIA [id number] [facility] Results Test Description Test Time Test Comments Results Result Co mments Source [id number] 20:14:00* Test Item Value Reference Range Interpretation Comme nts POCT PREG (test code = 1605) Negative On board controls acceptable with C Line (test code = 3574) Yes POCT PREG LOT # (test code = 3575) POCT PREG TEST DATE ( test code = 3576) [id number] 19:58:08* Test Item Value Reference Range Interpretation Comme nts LDH (test code = 8771657325) 451 U/L 120-246 H Lab Interpretation (test cod e = 13372-9) Abnormal [facility] [id number] 19:58:08* Test Item Value Reference Range Interpretation Comme nts LDH (test code = 4619333052) 451 U/L 120-246 H Lab Interpretation (test cod e = 56289-5) Abnormal [facility] 18:04:19* Test Item Value Reference Range Interpretation Comme nts LIPASE (test code = 8847330368) 0-220 H Approximate valu e is ~6807. AC Lab Interpretation (test code = 25187-7) [facility]normal [facility] 18:04:19* Test Item Value Reference Range Interpretation Comme nts LIPASE (test code = 5871358055) 0-220 H Approximate valu e is ~6807. AC Lab Interpretation (test code = 87964-9) [facility]normal [facility] (54871)2022-11-19 17:44:31* Test Item Value Reference Range Interpretation Comme nts NA (test code = 6611209556) 139 mmol/L 135-145 K (test code = 9931662508) 3.9 mmol/L 3.5-5.0 CL (test code = 7686558465) 108 mmol/L 98-108 CO2 TOTAL (test code = 9765606293) 19 mmol/L 23-31 L AGAP (test code = 5554585500) 12 2-16 BUN (test code = 3432521926) 12 mg/dL 7-23 GLUCOSE (test code = 8314927793) 108 mg/dL 70-110 CREATININE (test code = 0106975511) 0.67 mg/dL 0.50-1.04 TOTAL BILI (test code = 7594011967) 3.2 mg/dL 0.1-1.1 H CALCIUM (test code = 6583660613) 9.1 mg/dL 8.6-10.6 T PROTEIN (test code = 2063627973) 7.3 g/dL 6.3-8.2 ALBUMIN (test code = 9541815811) 4.3 g/dL 3.5-5.0 ALK PHOS (test code = 4168009557) 166 U/L 34-122 H ALTv (test code = 1742-6) 652 U/L 5-35 H AST(SGOT) (test code = 9730397325) 600 U/L 13-40 H eGFR (test code = 2160163110) 106.4 mL/min/1.73m2 VANNA (test code = VANNA) Association of Glomerular Filtration Rate (GFR) and Staging of Kidney Disease* + --+ --+ ------+| GFR (mL/min/1.73 m2) ?| With Kidney Damage ?| ?Without Kidney Damage+ --------+ --------+ +| ?>90 ?| ?Stage one ?| ? Normal ?+ ---+ ---+ -------+| ?60-89 ?| ?Stage two ?| ? Decreased GFR ? + --+ --+ ------+| ?30-59 ?| ?Stage three ?| ? Stage three ? + --+ --+ ------+| ?15-29 ?| ?Stage four ? | ? Stage four ?+ ---+ ---+ -------+| ?<15 (or dialysis) ? ?| ?Stage five ? | ? Stage five ?+ ---+ ---+ -------+ *Each stage assumes the associated GFR level has been in effect for at least three months. ?Stages 1 to 5, with or without kidney disease, indicate chronic kidney disease. Notes: Determination of stages one and two (with eGFR >59mL/min/1.73 m2) requires estimation of kidney damage for at least three months as defined by structural or functional abnormalities of the kidney, manifested by either:Pathological abnormalities or Markers of kidney damage (including abnormalities in the composition of the blood or urine or abnormalities in imaging tests). Lab Interpretation (test code = 43580-3) Abnormal [facility]. METABOLIC PANEL (27568)2022-11-19 17:44:31* Test Item Value Reference Range Interpretation Comme nts NA (test code = 2617587755) 139 mmol/L 135-145 K (test code = 9232057091) 3.9 mmol/L 3.5-5.0 CL (test code = 4733618773) 108 mmol/L 98-108 CO2 TOTAL (test code = 2688051627) 19 mmol/L 23-31 L AGAP (test code = 6941647588) 12 2-16 BUN (test code = 3271243369) 12 mg/dL 7-23 GLUCOSE (test code = 9068271410) 108 mg/dL 70-110 CREATININE (test code = 3664300203) 0.67 mg/dL 0.50-1.04 TOTAL BILI (test code = 6495676345) 3.2 mg/dL 0.1-1.1 H CALCIUM (test code = 4654579025) 9.1 mg/dL 8.6-10.6 T PROTEIN (test code = 4064177082) 7.3 g/dL 6.3-8.2 ALBUMIN (test code = 6187328458) 4.3 g/dL 3.5-5.0 ALK PHOS (test code = 3149561600) 166 U/L 34-122 H ALTv (test code = 1742-6) 652 U/L 5-35 H AST(SGOT) (test code = 1530700228) 600 U/L 13-40 H eGFR (test code = 0955479330) 106.4 mL/min/1.73m2 VANNA (test code = VANNA) Association of Glomerular Filtration Rate (GFR) and Staging of Kidney Disease* + --+ --+ ------+| GFR (mL/min/1.73 m2) ?| With Kidney Damage ?| ?Without Kidney Damage+ --------+ --------+ +| ?>90 ?| ?Stage one ?| ? Normal ?+ ---+ ---+ -------+| ?60-89 ?| ?Stage two ?| ? Decreased GFR ? + --+ --+ ------+| ?30-59 ?| ?Stage three ?| ? Stage three ? + --+ --+ ------+| ?15-29 ?| ?Stage four ? | ? Stage four ?+ ---+ ---+ -------+| ?<15 (or dialysis) ? ?| ?Stage five ? | ? Stage five ?+ ---+ ---+ -------+ *Each stage assumes the associated GFR level has been in effect for at least three months. ?Stages 1 to 5, with or without kidney disease, indicate chronic kidney disease. Notes: Determination of stages one and two (with eGFR >59mL/min/1.73 m2) requires estimation of kidney damage for at least three months as defined by structural or functional abnormalities of the kidney, manifested by either:Pathological abnormalities or Markers of kidney damage (including abnormalities in the composition of the blood or urine or abnormalities in imaging tests). Lab Interpretation (test code = 00560-2) Abnormal [facility] WITH [id number] 17:04:02* Test Item Value Reference Range Interpretation Comme nts WBC (test code = 6690-2) 8.28 See_Comment [Automated Bot[employer]] The system which generated this result transmitted reference range: 4.30 - 11.10 10*3/?L. The reference range was not used to interpret this result as normal/abnormal. RBC (test code = 789-8) 4.90 See_Comment [RegisterPatient] The system which generated this result transmitted reference range: 3.93 - 5.25 10*6/?L. The reference range was not used to interpret this result as normal/abnormal. HGB (test code = 718-7) 12.6 g/dL 11.6-15.0 HCT (test code = 4544-3) 38.5 % 35.7-45.2 MCV (test code = 787-2) 78.6 fL 80.6-95.5 L MCH (test code = 785-6) 25.7 pg 25.9-32.8 L MCHC (test code = 786-4) 32.7 g/dL 31.6-35.1 RDW-SD (test code = 04149-3) 41.4 fL 39.0-49.9 RDW-CV (test code = 788-0) 14.6 % 12.0-15.5 PLT (test code = 777-3) 337 See_Comment [Automated [employer]] The system which generated this result transmitted reference range: 166 - 358 10*3/?L. The reference range was not used to interpret this result as normal/abnormal. MPV (test code = 26079-0) 9.3 fL 9.5-12.9 L NRBC/100 WBC (test code = 0565112585) 0.0 See_Comment [Automated me ssage] The system which generated this result transmitted reference range: 0.0 - 10.0 /100 WBCs. The reference range was not used to interpret this result as normal/abnormal. NRBC x10^3 (test code = 2608746473) See_Comment [Automated messa ge] The system which generated this result transmitted reference range: 10*3/?L. The reference range was not used to interpret this result as normal/abnormal. GRAN MAT (NEUT) % (test code = 770-8) 69.1 % IMM GRAN % (test code = 4742641231) 0.50 % LYMPH % (test code = 736-9) 20.2 % MONO % (test code = 5905-5) 8.6 % EOS % (test code = 713-8) 1.2 % BASO % (test code = 706-2) 0.4 % GRAN MAT x10^3(ANC) (test code = 8501740013) 5.73 10*3/uL 1.88-7.09 IMM GRAN x10^3 (test code = 3511329368) 0.04 10*3/uL 0.00-0.06 LYMPH x10^3 (test code = 731-0) 1.67 10*3/uL 1.32-3.29 MONO x10^3 (test code = 742-7) 0.71 10*3/uL 0.33-0.92 EOS x10^3 (test code = 711-2) 0.10 10*3/uL 0.03-0.39 BASO x10^3 (test code = 704-7) 0.03 10*3/uL 0.01-0.07 Lab Interpretation (test code = 34187-9) Abnormal [facility] WITH [id number] 17:04:02* Test Item Value Reference Range Interpretation Comme nts WBC (test code = 6690-2) 8.28 See_Comment [Automated messa ge] The system which generated this result transmitted reference range: 4.30 - 11.10 10*3/?L. The reference range was not used to interpret this result as normal/abnormal. RBC (test code = 789-8) 4.90 See_Comment [Automated messa ge] The system which generated this result transmitted reference range: 3.93 - 5.25 10*6/?L. The reference range was not used to interpret this result as normal/abnormal. HGB (test code = 718-7) 12.6 g/dL 11.6-15.0 HCT (test code = 4544-3) 38.5 % 35.7-45.2 MCV (test code = 787-2) 78.6 fL 80.6-95.5 L MCH (test code = 785-6) 25.7 pg 25.9-32.8 L MCHC (test code = 786-4) 32.7 g/dL 31.6-35.1 RDW-SD (test code = 94868-4) 41.4 fL 39.0-49.9 RDW-CV (test code = 788-0) 14.6 % 12.0-15.5 PLT (test code = 777-3) 337 See_Comment [Automated messa ge] The system which generated this result transmitted reference range: 166 - 358 10*3/?L. The reference range was not used to interpret this result as normal/abnormal. MPV (test code = 46594-5) 9.3 fL 9.5-12.9 L NRBC/100 WBC (test code = 8082335639) 0.0 See_Comment [Automated ID90T ssage] The system which generated this result transmitted reference range: 0.0 - 10.0 /100 WBCs. The reference range was not used to interpret this result as normal/abnormal. NRBC x10^3 (test code = 4613121080) See_Comment [Automated messa ge] The system which generated this result transmitted reference range: 10*3/?L. The reference range was not used to interpret this result as normal/abnormal. GRAN MAT (NEUT) % (test code = 770-8) 69.1 % IMM GRAN % (test code = 0754867315) 0.50 % LYMPH % (test code = 736-9) 20.2 % MONO % (test code = 5905-5) 8.6 % EOS % (test code = 713-8) 1.2 % BASO % (test code = 706-2) 0.4 % GRAN MAT x10^3(ANC) (test code = 7166874976) 5.73 10*3/uL 1.88-7.09 IMM GRAN x10^3 (test code = 9232858514) 0.04 10*3/uL 0.00-0.06 LYMPH x10^3 (test code = 731-0) 1.67 10*3/uL 1.32-3.29 MONO x10^3 (test code = 742-7) 0.71 10*3/uL 0.33-0.92 EOS x10^3 (test code = 711-2) 0.10 10*3/uL 0.03-0.39 BASO x10^3 (test code = 704-7) 0.03 10*3/uL 0.01-0.07 Lab Interpretation (test code = 58392-3) Abnormal [facility] [id number] 16:27:00* Test Item Value Reference Range Interpretation Comme nts POCT PREG (test code = 1605) NEGATIVE On board controls acceptable with C Line (test code = 3574) PASS POCT PREG LOT # (test code = 3575) [id number] POCT PREG TEST DATE ( test code = 3575) [id number] Lab Interpretation (test cod e = 96527-9) Normal [facility] [id number] 16:27:00* Test Item Value Reference Range Interpretation Comme nts POCT PREG (test code = 1605) NEGATIVE On board controls acceptable with C Line (test code = 3574) PASS POCT PREG LOT # (test code = 3575) [id number] POCT PREG TEST DATE ( test code = 357) [id number] Lab Interpretation (test cod e = 33910-8) Normal [facility] with [id number] 13:08:50* Test Item Value Reference Range Interpretation Comme nts WBC (test code = 6690-2) See_Comment H [Automated message] The system which generated this result transmitted reference range: 4.30 - 11.10 10*3/?L. The reference range was not used to interpret this result as normal/abnormal. RBC (test code = 789-8) See_Comment [Automated message] The system which generated this result transmitted reference range: 3.93 - 5.25 10*6/?L. The reference range was not used to interpret this result as normal/abnormal. HGB (test code = 718-7) 10.3 g/dL 11.6-15.0 L HCT (test code = 4544-3) 31.9 % 35.7-45.2 L MCV (test code = 787-2) 81.0 fL 80.6-95.5 MCH (test code = 785-6) 26.1 pg 25.9-32.8 MCHC (test code = 786-4) 32.3 g/dL 31.6-35.1 RDW-SD (test code = 77871-4) 39.5 fL 39.0-49.9 RDW-CV (test code = 788-0) 13.6 % 12.0-15.5 PLT (test code = 777-3) See_Comment [Automated message] The system which generated this result transmitted reference range: 166 - 358 10*3/?L. The reference range was not used to interpret this result as normal/abnormal. MPV (test code = 35401-6) 9.8 fL 9.5-12.9 NRBC/100 WBC (test code = 3050626758) See_Comment [Automated message] The system which generated this result transmitted reference range: 0.0 - 10.0 /100 WBCs. The reference range was not used to interpret this result as normal/abnormal. NRBC x10^3 (test code = 8820839217) See_Comment [Automated message] The system which generated this result transmitted reference range: 10*3/?L. The reference range was not used to interpret this result as normal/abnormal. SEG % (test code = 04319-6) 80 % 33-76 H BAND % (test code = 73424-1) 8 % 0-1 H LYMPH % (test code = 31815-9) 8 % 14-54 L MONO % (test code = 02263-7) 4 % 0-4 ANC (test code = 753-4) 17.53 10*3/uL 1.88-7.09 H Lab Interpretation (test code = 69888-0) Abnormal [facility] (D) IMMUNE [id number] 17:21:20* Test Item Value Reference Range Interpretation Comme nts RHIG CANDIDATE? (test code = 5055) No- see comment Patient is not a candidate for RhIg- Patient is Rh Positive.Performed at [facility] Laboratory Services - [facility] Blood [address] [place] [address] Free: [phone] No. [id number] [facility] and Screen - ONCE [id number] 17:52:12* Test Item Value Reference Range Interpretation Comme nts ABO & RH (test code = 20) O Positive Performed at [facility] Laboratory Services - [facility] Blood [address] Free: [phone] No. [id number] IAT (test code = 1185) Negative Performed at [facility] Laboratory Services - [facility] Blood [address] [place] [address] Free: [phone] No. [id number] [facility] W/O SPECIFIC [id number] 17:05:00* Test Item Value Reference Range Interpretation Comme nts POCT PH U (test code = 3254) n/a 5-8 POCT U LEUK EST (test code = 3263) n/a Negative - Negative POCT U NIT (test code = 3262) n/a Negative - Negati ve POCT U PROT (test code = 3259) negative Negative - Negat robb POCT U GLU (test code = 3256) negative Negative - Negati ve POCT U KETONE (test code = 3258) n/a Negative - Neg ative POCT U BLD (test code = 3257) n/a Negative - Negati ve [facility]/O SPECIFIC [id number] 15:03:00* Test Item Value Reference Range Interpretation Comme nts POCT PH U (test code = 3254) n/a 5-8 POCT U LEUK EST (test code = 3263) n/a Negative - N egative POCT U NIT (test code = 3262) n/a Negative - Negati ve POCT U PROT (test code = 3259) trace Negative - Negat robb POCT U GLU (test code = 3256) normal Negative - Negati ve POCT U KETONE (test code = 3258) n/a Negative - Neg ative POCT U BLD (test code = 3257) n/a Negative - Negati ve [facility] URINALYSIS W/O SPECIFIC [id number] 15:49:00* Test Item Value Reference Range Interpretation Comme nts POCT PH U (test code = 3254) 6 mg/dl 5-8 POCT U LEUK EST (test code = 3263) Negative Negative - Negative POCT U NIT (test code = 3262) Negative Negative - Negati ve POCT U PROT (test code = 3259) Trace Negative - Negat robb POCT U GLU (test code = 3256) Normal Negative - Negati ve POCT U KETONE (test code = 3258) Negative Negative - Neg ative POCT U BLD (test code = 3257) Negative - Negati ve [facility] URINALYSIS W/O SPECIFIC [id number] 17:00:00* Test Item Value Reference Range Interpretation Comme nts POCT PH U (test code = 3254) n/a 5-8 POCT U LEUK EST (test code = 3263) n/a Negative - Negative POCT U NIT (test code = 3262) n/a Negative - Negati ve POCT U PROT (test code = 3259) negativve Negative - Negat robb POCT U GLU (test code = 3256) normal Negative - Negati ve POCT U KETONE (test code = 3258) n/a Negative - Negative POCT U BLD (test code = 3257) n/a Negative - Negati ve [facility] URINALYSIS W/O SPECIFIC [id number] 16:19:00* Test Item Value Reference Range Interpretation Comme nts POCT PH U (test code = 3254) n/a 5-8 POCT U LEUK EST (test code = 3263) n/a Negative - Negative POCT U NIT (test code = 3262) n/a Negative - Negati ve POCT U PROT (test code = 3259) Negative Negative - Negat robb POCT U GLU (test code = 3256) Normal Negative - Negati ve POCT U KETONE (test code = 3258) n/a Negative - Neg ative POCT U BLD (test code = 3257) n/a Negative - Negati ve [facility] URINALYSIS W/O SPECIFIC [id number] 17:06:00* Test Item Value Reference Range Interpretation Comme nts POCT PH U (test code = 3254) n/a 5-8 POCT U LEUK EST (test code = 3263) n/a Negative - Negative POCT U NIT (test code = 3262) n/a Negative - Negati ve POCT U PROT (test code = 3259) Negative Negative - Negat robb POCT U GLU (test code = 3256) Normal Negative - Negati ve POCT U KETONE (test code = 3258) n/a Negative - Neg ative POCT U BLD (test code = 3257) n/a Negative - Negati ve [facility] URINALYSIS W/O SPECIFIC [id number] 17:06:00* Test Item Value Reference Range Interpretation Comme nts POCT PH U (test code = 3254) n/a 5-8 POCT U LEUK EST (test code = 3263) n/a Negative - Negative POCT U NIT (test code = 3262) n/a Negative - Negati ve POCT U PROT (test code = 3259) Negative Negative - Negat robb POCT U GLU (test code = 3256) Normal Negative - Negati ve POCT U KETONE (test code = 3258) n/a Negative - Neg ative POCT U BLD (test code = 3257) n/a Negative - Negati ve [facility] URINALYSIS W/O SPECIFIC [id number] 14:32:00* Test Item Value Reference Range Interpretation Comme nts POCT PH U (test code = 3254) n/a 5-8 POCT U LEUK EST (test code = 3263) n/a Negative - Negative POCT U NIT (test code = 3262) n/a Negative - Negati ve POCT U PROT (test code = 3259) negative Negative - Negat robb POCT U GLU (test code = 3256) negative Negative - Negati ve POCT U KETONE (test code = 3258) n/a Negative - Neg ative POCT U BLD (test code = 3257) n/a Negative - Negati ve [facility] URINALYSIS W/O SPECIFIC [id number] 16:41:00* Test Item Value Reference Range Interpretation Comme nts POCT PH U (test code = 3254) n/a 5-8 POCT U LEUK EST (test code = 3263) n/a Negative - Negative POCT U NIT (test code = 3262) n/a Negative - Negati ve POCT U PROT (test code = 3259) Negative Negative - Negat robb POCT U GLU (test code = 3256) Normal Negative - Negati ve POCT U KETONE (test code = 3258) n/a Negative - Neg ative POCT U BLD (test code = 3257) n/a Negative - Negati ve [facility] URINALYSIS W/O SPECIFIC [id number] 15:29:00* Test Item Value Reference Range Interpretation Comme nts POCT PH U (test code = 3254) n/a 5-8 POCT U LEUK EST (test code = 3263) n/a Negative - N egative POCT U NIT (test code = 3262) n/a Negative - Negati ve POCT U PROT (test code = 3259) neg Negative - Negat robb POCT U GLU (test code = 3256) neg Negative - Negati ve POCT U KETONE (test code = 3258) n/a Negative - Neg ative POCT U BLD (test code = 3257) n/a Negative - Negati ve [facility] URINALYSIS W/O SPECIFIC [id number] 16:30:00* Test Item Value Reference Range Interpretation Comme nts POCT PH U (test code = 3254) n/a 5-8 POCT U LEUK EST (test code = 3263) n/a Negative - Negative POCT U NIT (test code = 3262) n/a Negative - Negati ve POCT U PROT (test code = 3259) negative Negative - Negat robb POCT U GLU (test code = 3256) negative Negative - Negati ve POCT U KETONE (test code = 3258) n/a Negative - Neg ative POCT U BLD (test code = 3257) n/a Negative - Negati ve [facility] SPECIFIC [id number] 18:59:00* Test Item Value Reference Range Interpretation Comme nts POCT U SP GRAV (test code = 3255) N/A 1.005-1.025 POCT PH U (test code = 3254) 5 mg/dl 5-8 POCT U LEUK EST (test code = 3263) Large Negative - Negative POCT U NIT (test code = 3262) Negative Negative - Negati ve POCT U PROT (test code = 3259) Negative Negative - Negative POCT U GLU (test code = 3256) Normal Negative - Negati ve POCT U KETONE (test code = 3258) Negative Negative - Negative POCT U UROBILI (test code = 3260) N/A 0.2-1 POCT U BILI (test code = 3261) N/A Negative - Negative POCT U BLD (test code = 3257) Negative - Negati ve POCT U COLOR (test code = 3266) Dark Yellow POCT U APPEAR (test code = 3267) cloudy [facility]) Ag [Presence] in Respiratory specimen by Rapid [id number] 14:44:00* Test Item Value Reference Range Interpretation Comme nts SARS CoV 2 (test code = SARS CoV 2) negative [facility] Notes Date/Time Note Provider Source 2024-01-20 10:34:33 Completed Chart review/Care everywhere/[facility]. [facility]2 immunizations on file are current. Care Everywhere no new medical records obtained at this time for [facility] . Did not send patient a message via [employer] of [facility] Maintenance. Next appointment is scheduled for a WWE in 09/2024.. Insurance on file is currently active. Health Maintenance Due Topic Date Due VARICELLA VACCINES (2 of 2 - 2-dose childhood series) 03/27/2009 SDOH Financial Resource Strain Never done SDOH Food Insecurity Never done SDOH Transportation Needs Never done SARS-CoV-2 (COVID-19) Vaccine (2022- season) 2023 Records Update Encounter Health Maintenance Team completed a CareEverywhere search to update records. No patient contact made. Scott, [facility] and [facility] [phone] Thea Helms MA [facility]"
[2024-06-30 19:35] LABS: Absolute Basophils 0.1 K/uL (0-0.5); Absolute Eosinophils 0.1 K/uL (0-0.5); Absolute Lymphocytes (CBC) 2.3 K/uL (0.7-4.9); Absolute Monocytes 1.2 K/uL (0.1-1.3); Absolute Neutrophil 10.5 K/uL (1.8-8.0); Basophils % 0.4 % (0-1.3); Eosinophils % 0.9 % (0-4.4); Hematocrit 38.8 % (36.0-45.0); Hemoglobin 12.4 g/dL (12.0-15.0); Lymphocytes % 16.1 % (15.3-44.8); MCH 26.2 pg (27.0-35.0); MCHC 31.9 g/dL (32.0-36.0); MCV 82.3 fL (80-100); MPV 7.5 fL (7.6-11.3); Monocytes % 8.2 % (3.3-12.3); Neutrophils % 74.4 % (41.7-73.7); Platelets 350 thou/uL (152-406); RBC Red Blood Cell Count 4.72 M/uL (3.86-4.86)
[2024-06-30] MEDS ORDERED: CEFTRIAXONE 1000 MG/VIAL ONE (19:44)
[2024-06-30] MEDS ORDERED: ACETAMINOPHEN 500 MG TAB ONE (19:44)
[2024-06-30 19:48] LABS: Anion Gap 9.9 mEq/L (5.0-15.0); Potassium 3.9 mEq/L (3.5-5.1)
--- NOTE | 2024-06-30 19:50 | RAD REPORT ---
EXAM: Extremity Nonvascular Complete HISTORY: EVAL FOR BREAST ABSCESS COMPARISON: None TECHNIQUE: Sonographic grayscale and color flow imaging of the left breast including the region of in terest as described by the patient. FINDINGS: Fluid collection identified at approximately the 5:00 position in the right breast measuring 2.3 x 3. 2 x 1.2 cm. This is complex in appearance. Surrounding subcutaneous edema. IMPRESSION: Fluid collection in the area of concern in the right breast concerning for abscess.
--- NOTE | 2024-06-30 19:54 | RAD REPORT ---
EXAM: Extremity Nonvascular Complete HISTORY: eval for breast abscess RIGHT COMPARISON: None TECHNIQUE: Sonographic grayscale and color flow imaging of the left breast including the region of in terest as described by the patient. FINDINGS: Subcutaneous complex fluid collection identified at the site of concern at the left breast at approxi mately the 7:00 position measuring 1.6 x 1.7 x 0.5 cm. Surrounding subcutaneous edema. IMPRESSION: Left breast fluid collection measuring up to 1.7 cm concerning for abscess.
--- NOTE | 2024-06-30 20:06 | EDPHYS ---
Physician Documentation [facility] Name: Srikanth Whiting Age: 28 yrs Sex: Female : 1995 Arrival Date: 06/30/2024 Time: 19:05 Bed 5 Private MD: ED Physician Daniel Morton HPI: 06/30 19:28 This 28 yrs old Female presents to ER via Ambulatory with complaints of ec2 Breast Problem. 19:28 Patient arrives today d/t concern for breast infection. Patient arrives from [address] with concern for breast abscess. External records show that patient having some increased redness from the right breast, external records show the patient received clindamycin, 900 mg. Metabolic profile is reassuring, CBC shows slight leukocytosis at 13.4.. 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 - Infectious Disease History:: Denies. - Social history:: Smoking status: Patient denies any tobacco usage or history of. ROS: 19:30 Constitutional: as per hpi ec2 Exam: 19:30 Constitutional: GEN: NAD Head: atraumatic Eyes: EOMI Ears: External ears are ec2 normal. CV: regular rate LUNGS: no respiratory distress ABD: non-distended SKIN: Right breast with erythema and induration appreciated, left breast with fluctuance appreciated inferior to the areola, performed under nurse supervision, juanita Flor RN MSK: no evidence of trauma Vital Signs: 19:23 BP 115 / 78; Pulse 94; Resp 18; Temp 99.6; Pulse Ox 99% on R/A; Weight 123.83 kg; kj2 Height 5 ft. 6 in. ; Pain 0/10; 19:30 BP 110 / 58; Pulse 89; Resp 16; Pulse Ox 99% ; dd2 21:43 BP 115 / 62; Pulse 87; Resp 16; Pulse Ox 98% ; dd2 19:23 Body Mass Index 44.06 (123.83 kg, 167.64 cm) kj2 19:23 Pain Scale: Adult kj2 Geronimo Coma Score: 19:30 Eye Response: spontaneous(4). Motor Response: obeys commands(6). Verbal Response: dd2 oriented(5). Total: 15. MDM: 19:10 Patient medically screened. ec2 19:30 Data reviewed: vital signs. ED course: Patient arrives today for evaluation of redness ec2 to the right breast. Examination remarkable for nontoxic dividual's otherwise in no acute distress. External records reviewed as noted in HPI. Will obtain repeat lab work, add on ceftriaxone for antibiotic coverage, ultrasound as well. Differential includes cellulitis, abscess.. 19:59 ED course: Metabolic profile is reassuring. 1.7 cm left breast abscess noted. Right ec2 breast with abscess also noted. . 20:04 ED course: Patient with abscesses x 2, I discussed the case with general surgery who ec2 will consult on the patient. Will admit for sepsis, cellulitis, abscess. Discussed case with hospitalist will admit primarily. Patient updated on the plan of care and agreeable.. 20:49 ED course: EKG independently reviewed and interpreted by me, shows no acute ST segment ec2 elevations, rate of 77, NSR, nonactionable intervals.. 06/30 19:15 Order name: CBC with Diff; Complete Time: 20:23 ec2 06/30 19:15 Order name: BMP; Complete Time: 19:58 ec2 06/30 19:15 Order name: Test, Urine; Complete Time: 20:23 ec2 06/30 19:29 Order name: Blood Culture Adult (2) ec2 06/30 19:29 Order name: Lactate w/ 2H reflex if indic.; Complete Time: 20:39 ec2 06/30 19:29 Order name: Protime (+inr); Complete Time: 20:23 ec2 06/30 19:29 Order name: Ptt, Activated; Complete Time: 20:23 ec2 06/30 20:47 Order name: Urinalysis w/ reflexes EDMS 06/30 20:47 Order name: CBC with Automated Diff EDMS 06/30 20:47 Order name: CBC with Automated Diff EDMS 06/30 20:47 Order name: Comprehensive Metabolic Panel EDMS 06/30 20:47 Order name: Comprehensive Metabolic Panel EDMS 06/30 19:42 Order name: Extremity Nonvascular Complete; Complete Time: 19:58 EDMS 06/30 19:43 Order name: Extremity Nonvascular Complete; Complete Time: 19:58 EDMS 06/30 20:47 Order name: CONS Physician Consult EDFL 06/30 19:29 Order name: Accucheck; Complete Time: 20:54 ec2 06/30 19:29 Order name: Cardiac monitoring; Complete Time: 19:38 ec2 06/30 19:29 Order name: EKG - Nurse/Tech; Complete Time: 20:54 ec2 06/30 19:29 Order name: IV Saline Lock - Large Bore; Complete Time: 20:10 ec2 06/30 19:29 Order name: Labs collected and sent; Complete Time: 20:10 ec2 06/30 19:29 Order name: O2 Per Protocol; Complete Time: 20:10 ec2 06/30 19:29 Order name: O2 Sat Monitoring; Complete Time: 20:10 ec2 06/30 19:29 Order name: Vital Signs; Complete Time: 20:10 ec2 Administered Medications: 20:10 Drug: Rocephin IV 1 grams IV at calculated rate once; Given slow IV push per pharmacy dd2 instructions Route: IV; Rate: calculated rate; Site: right antecubital; 20:20 Follow up: IV Status: Completed infusion; IV Intake: 10ml dd2 20:25 Follow up: Response: No adverse reaction dd2 20:10 Drug: Acetaminophen PO 1000 mg PO once Route: PO; dd2 20:40 Follow up: Response: No adverse reaction dd2 Disposition Summary: 06/30/24 20:05 Hospitalization Ordered Notes: Hospitalization Status: Inpatient Admission ec2 Provider: Niall Kinsey ec2 Location: Telemetry/[facility] (Inpatient) ec2 Condition: Stable ec2 Problem: new ec2 Symptoms: are unchanged ec2 Bed/Room Type: Standard ec2 Room Assignment: [facility](06/30/24 21:12) Diagnosis - Sepsis, unspecified organism ec2 - Breast Abscess ec2 - Breast Cellulitis ec2 Forms: - Medication Reconciliation Form ec2 - SBAR form ec2 - Leadership Thank You Letter ec2 Critical care time excluding procedures: 20:04 Critical care time: Bedside Care: 25 minutes, Consultation: 5 minutes. Total time: 30 ec2 minutes Signatures: Dispatcher [employer] Kim Gallardo RN RN Daniel Cha MD MD ec2 Radha Ferreira RN RN 2 ANGIE WHEELER RN RN dd2 Corrections: (The following items were deleted from the chart) 19:30 19:30 BLOOD CULTURE*+BA.LAB.BRZ ordered. EDMS EDMS 19:30 19:30 LACTATE+C.LAB.BRZ ordered. EDMS EDMS 19:30 19:30 PROTIME (+INR)+COAG.LAB.BRZ ordered. EDMS EDMS 19:30 19:30 PTT, ACTIVATED+COAG.LAB.BRZ ordered. EDMS EDMS 19:42 19:16 BREAST/AXILLA, LIMITED ordered. EDMS EDMS 20:07 19:30 Constitutional: GEN: NAD Head: atraumatic Eyes: EOMI Ears: External ears are ec2 normal. CV: regular rate LUNGS: no respiratory distress ABD: non-distended SKIN: Right breast with erythema and induration appreciated, performed under nurse supervision, to BRO Flor MSK: no evidence of trauma ec2 21:12 20:05 ec2 cg
--- NOTE | 2024-06-30 20:06 | ER ---
Nurse's Notes [facility] Name: Srikanth Whiting Age: 28 yrs Sex: Female : 1995 Arrival Date: 06/30/2024 Time: 19:05 Bed 5 Private MD: Diagnosis: Sepsis, unspecified organism;Breast Abscess;Breast Cellulitis Presentation: 06/30 19:23 Chief complaint: Patient states: has 1 abcess on each breast. Coronavirus screen: kj2 Vaccine status: Patient reports receiving the 2nd dose of the covid vaccine. moderna vaccine received. Ebola Screen: No symptoms or risks identified at this time. Initial Sepsis Screen: Does the patient meet any 2 criteria? No. Patient's initial sepsis screen is negative. Does the patient have a suspected source of infection? No. Patient's initial sepsis screen is negative. Risk Assessment: Do you want to hurt yourself or someone else? Patient reports no desire to harm self or others. Onset of symptoms is unknown. 19:23 Method Of Arrival: Ambulatory kj2 19:23 Acuity: PATRICIA 3 kj2 Triage Assessment: 19:27 General: Appears in no apparent distress. Behavior is calm, cooperative. Pain: Denies kj2 pain. Neuro: Level of Consciousness is awake, alert, obeys commands, Oriented to person, place, time, situation. Cardiovascular: Patient's skin is warm and dry. Respiratory: Airway is patent Respiratory effort is even, unlabored. 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 - Infectious Disease History:: Denies. - Social history:: Smoking status: Patient denies any tobacco usage or history of. Screenin:30 [facility] ED Fall Risk Assessment (Adult) History of falling in the last 3 months, dd2 including since admission No falls in past 3 months (0 pts) Confusion or Disorientation No (0 pts) Intoxicated or Sedated No (0 pts) Impaired Gait No (0 pts) Mobility Assist Device Used No (0 pt) Altered Elimination No (0 pt) Score/Fall Risk Level 0 - 2 = Low Risk Oriented to surroundings, Maintained a safe environment, Hourly rounding (assess needs \T\ fall precautionary measures) done. Abuse screen: Denies threats or abuse. Nutritional screening: No deficits noted. Tuberculosis screening: No symptoms or risk factors identified. Assessment: 19:30 General: Appears in no apparent distress. Behavior is calm, cooperative, appropriate dd2 for age. Pain: Complains of pain in right breast Pain currently is 3 out of 10 on a pain scale. Neuro: Level of Consciousness is awake, alert, obeys commands, Oriented to person, place, time, situation, Appropriate for age Gait is steady. Cardiovascular: No deficits noted. Patient's skin is warm and dry. Respiratory: No deficits noted. Airway is patent Respiratory effort is even, unlabored, Respiratory pattern is regular, symmetrical. GI: No deficits noted. No signs and/or symptoms were reported involving the gastrointestinal system. Abdomen is distended, non-distended, Abd is soft and non tender X 4 quads. : No deficits noted. No signs and/or symptoms were reported regarding the genitourinary system. EENT: No deficits noted. No signs and/or symptoms were reported regarding the EENT system. Derm: Skin is red, Skin temperature is warm Wound noted right breast Wound is REDNESS, WARMTH AND INDURATION TO THE LEFT BREAST Reports pain. Musculoskeletal: No deficits noted. No signs and/or symptoms reported regarding the musculoskeletal system. Circulation, motion, and sensation intact. Range of motion: intact in all extremities. Vital Signs: 19:23 BP 115 / 78; Pulse 94; Resp 18; Temp 99.6; Pulse Ox 99% on R/A; Weight 123.83 kg; kj2 Height 5 ft. 6 in. ; Pain 0/10; 19:30 BP 110 / 58; Pulse 89; Resp 16; Pulse Ox 99% ; dd2 21:43 BP 115 / 62; Pulse 87; Resp 16; Pulse Ox 98% ; dd2 19:23 Body Mass Index 44.06 (123.83 kg, 167.64 cm) kj2 19:23 Pain Scale: Adult kj2 Geronimo Coma Score: 19:30 Eye Response: spontaneous(4). Motor Response: obeys commands(6). Verbal Response: dd2 oriented(5). Total: 15. ED Course: 19:09 Patient arrived in ED. im 19:10 Daniel Morton MD is Attending Physician. ec2 19:18 ANGIE WHEELER RN is Primary Nurse. dd2 19:25 Triage completed. kj2 19:26 Arm band placed on right wrist. Patient placed in an exam room. kj2 19:30 Patient has correct armband on for positive identification. Call light in reach. Side dd2 rails up X 1. Client placed on continuous cardiac and pulse oximetry monitoring. NIBP monitoring applied. Door closed. Noise minimized. Warm blanket given. Pillow given. Verbal reassurance given. 19:30 Provided Education on: CALL LIGHT, LABS/RADIOLOGY, RESULT TIMES. dd2 19:30 No provider procedures requiring assistance completed. IV is patent, is intact, with dd2 fluids infusing freely, with good blood return, 20G RAC PLACED BY PRIOR ER. 19:42 Extremity Nonvascular Complete In Process Unspecified. EDMS 19:43 Extremity Nonvascular Complete In Process Unspecified. EDMS 19:59 Initial lab(s) drawn, by me, sent to lab. First set of blood cultures drawn by me, dd2 Urine collected: clean catch specimen, abby colored. 20:05 Niall Kinsey MD is Hospitalizing Provider. ec2 20:10 Ptt, Activated Sent. dd2 20:10 Protime (+inr) Sent. dd2 20:10 Lactate w/ 2H reflex if indic. Sent. dd2 20:10 Blood Culture Adult (2) Sent. dd2 20:10 Test, Urine Sent. dd2 20:50 EKG done, by ED staff, reviewed by Daniel Morton MD. dd2 21:43 Patient admitted, IV remains in place. dd2 Administered Medications: 20:10 Drug: Rocephin IV 1 grams IV at calculated rate once; Given slow IV push per pharmacy dd2 instructions Route: IV; Rate: calculated rate; Site: right antecubital; 20:20 Follow up: IV Status: Completed infusion; IV Intake: 10ml dd2 20:25 Follow up: Response: No adverse reaction dd2 20:10 Drug: Acetaminophen PO 1000 mg PO once Route: PO; dd2 20:40 Follow up: Response: No adverse reaction dd2 Medication: 19:30 VIS not applicable for this client. dd2 Intake: 20:20 IV: 10ml; Total: 10ml. dd2 Outcome: 20:05 Decision to Hospitalize by Provider. ec2 21:43 Admitted to Med/surg accompanied by tech, via wheelchair, room 415, with chart, dd2 21:43 Condition: stable 21:43 Discharge instructions given to patient, Instructed on the need for admit, 22:21 Patient left the ED. al5 Signatures: Dispatcher [employer] Paris Chakraborty Edwin, MD MD ec2 Samanta Hahn RN RN al5 Radha Ferreira RN RN kj2 ANGIE WHEELER RN RN dd2
[2024-06-30 20:19] LABS: Specific Gravity 1.016 (1.005-1.030)
[2024-06-30 20:21] LABS: PT Prothrombin Time 12.1 SECONDS (9.4-12.5); PTT, Activated Partial Thromb 37.2 SECONDS (24.3-36.9); Protime INR 1.08
[2024-06-30] MEDS ORDERED: ONDANSETRON 4 MG/2 ML VIAL IV PRN (20:42)
[2024-06-30] MEDS ORDERED: ACETAMINOPHEN 325 MG TABLET PO PRN (20:42)
--- NOTE | 2024-06-30 20:42 | P.HP ---
Certification for Inpatient Patient admitted to: Inpatient With expected LOS: >2 Midnights Practitioner: I am a practitioner with admitting privileges, knowledge of patient current condition, hospital course, and medical plan of care. Services: Services provided to patient in accordance with Admission requirements found in Title 42 Section 412.3 of the Code of Federal Regulations Patient History Date of Service: 07/01/24 Reason for admission: Breast Pain History of Present Illness: 28 yrs old Female with no significant past medical history other than metabolic syndrome and depression who was transferred from [facility] for pain and swelling of the right side of the breast and was concerning for breast abscess. Patient denies any fever or chills. No chest pain or shortness of breath. Started having symptoms 2 days ago and has been progressively worsening. Associated with erythema and increased tenderness over the right side. Denies any discharge. Patient was treated with clindamycin but the symptoms were progressively getting worse and was transferred over here for further management. Patient was assessed in the ER and was admitted for right breast abscess and for surgical consult. Allergies No Known Allergies Allergy (Unverified 06/30/24 20:50) Home medications list reviewed: Yes Home Medications: Ferrous Sulfate 325 mg PO BID 06/30/24 Fluoxetine HCl [Prozac] 40 mg PO DAILY 06/30/24 Lamotrigine [Lamictal] 100 mg PO DAILY 06/30/24 [place] Carbonate [Lithotabs 300MG] 300 mg PO DAILY 06/30/24 Metformin ER [Glucophage ER*] 500 mg PO DAILY 06/30/24 Risperidone [Risperidone Odt] 3 mg PO BEDTIME 06/30/24 - Past Medical/Surgical History Past Medical History: Reviewed- Non-Contributory Past Surgical History: Reviewed- Non-Contributory - Family History Family History: Reviewed- Non-Contributory - Social History Smoking Status: Never smoker Review of Systems 10-point ROS is otherwise unremarkable Physical Examination - Vital Signs Temperature: 99.6 F Blood Pressure: 110/72 Pulse: 94 Respirations: 18 Pulse Ox (%): 94 - Physical Exam General: Alert, Oriented x3, Mild distress, Obese HEENT: Atraumatic, Normocephalic Neck: Supple, No Thyromegaly Respiratory: Clear to auscultation bilaterally, Normal air movement Cardiovascular: Regular rate/rhythm, Normal S1 S2 Capillary refill: <2 Seconds Gastrointestinal: Soft and benign, W/out hepatosplenomegaly Musculoskeletal: No clubbing, No swelling Integumentary: Tenderness/swelling, Erythema, Warmth Neurological: Normal gait, Normal speech, Cranial nerves 3-12 intact Lymphatics: Other (No generalized lymphadenopathy) - Studies Laboratory Data (last 24 hrs) 06/30/24 06/30/24 06/30/24 19:59 19:25 19:25 WBC 14.10 H Hgb 12.4 Hct 38.8 Plt Count 350 PT 12.1 INR 1.08 APTT 37.2 H Sodium 135 L Potassium 3.9 BUN 11 Creatinine 0.71 Glucose 96 Assessment and Plan - Plan Right breast abscess Started on IV antibiotic Pain control N.p.o. postmidnight Surgical consult Possible I&D in a.m. Metabolic syndrome Continue home medications as directed. Accu-Chek before every meal and at bedtime Depression Continue home medications and titrate as needed Leukocytosis Mild hyponatremia Will monitor labs in a.m. GI/DVT prophylaxis Advanced directive full Code Discharge Plan: Home Plan to discharge in: 48 Hours - Advance Directives Does patient have a Living Will: No Does patient have a Durable POA for Healthcare: No - Code Status/Comfort Care Code Status: Full Code Time Spent Managing Pts Care (In Minutes): 48
[2024-06-30] MEDS: CLINDAMYCIN INJ 600 MG in NA CHLORIDE 0.9% 50 ML IV SCH (20:45)
[2024-06-30] MEDS ORDERED: HYDROCODONE/APAP 5/325 MG TAB PO PRN (20:46)
[2024-06-30] MEDS ORDERED: MORPHINE 2 MG/ML SYR IV PRN (20:46)
[2024-06-30] MEDS: CLINDAMYCIN 600MG/D5W 50 ML IV SCH (21:00)
[2024-06-30] MEDS: NA CHLORIDE 0.9% 1,000 ML IV SCH (22:30)
[2024-07-01 00:55] VITALS: BMI 43.9
[2024-07-01 06:11] LABS: Specific Gravity 1.016 (1.005-1.030); Sqamous Epithelial <5 /HPF (None Seen); Urine Bacteria None Seen /HPF (<20); Urine Bilirubin NEGATIVE (Negative); Urine Blood 1+ (Negative); Urine Clarity Turbid (Clear); Urine Color Light-Yellow (Yellow); Urine Culture Reflex Order NOT NEEDED; Urine Glucose NEGATIVE (Negative); Urine Ketones NEGATIVE (Negative); Urine Microscopic Reflex YN ORDER UMIC; Urine Mucus Slight /HPF (None Seen); Urine Nitrite NEGATIVE (Negative); Urine Protein NEGATIVE (Negative); Urine Urobilinogen Normal (Normal); Urine WBC <5 /HPF (<5)
[2024-07-01 06:25] LABS: Absolute Eosinophils 0.1 K/uL (0-0.5); Absolute Lymphocytes (CBC) 2.2 K/uL (0.7-4.9); Absolute Neutrophil 8.3 K/uL (1.8-8.0); Basophils % 0.2 % (0-1.3); Eosinophils % 1.3 % (0-4.4); Hematocrit 37.7 % (36.0-45.0); Hemoglobin 11.7 g/dL (12.0-15.0); Lymphocytes % 18.6 % (15.3-44.8); MCH 25.6 pg (27.0-35.0); MCV 82.7 fL (80-100); MPV 7.4 fL (7.6-11.3); Monocytes % 8.2 % (3.3-12.3); Neutrophils % 71.7 % (41.7-73.7); Platelets 319 thou/uL (152-406); RBC Red Blood Cell Count 4.56 M/uL (3.86-4.86); Red Cell Distribution Width 14.8 % (12.1-15.2)
[2024-07-01 06:41] LABS: Albumin/Globulin Ratio 0.8 (1.1-1.8); Anion Gap 8.9 mEq/L (5.0-15.0); Bilirubin Total 0.4 mg/dL (0.2-1.0); Potassium 3.9 mEq/L (3.5-5.1)
[2024-07-01] MEDS: CEFTRIAXONE 1,000 MG in NA CHLORIDE 0.9% 50 ML IVPB SCH (08:36)
[2024-07-01] MEDS: SUCCINYLCHOLINE 20 MG/ML (10 ML) IV ONE (14:38)
[2024-07-01] MEDS ORDERED: FENTANYL CITR 100 MCG/2 ML ONE (14:45)
[2024-07-01] MEDS ORDERED: propofoL 200 MG/20 ML VIAL IV ONE (14:45)
[2024-07-01] MEDS ORDERED: MIDAZOLAM HCL 2 MG/2 ML INJ ONE (14:45)
--- NOTE | 2024-07-01 14:54 | P.CNS ---
Date of Consult: 06/30/24 PC: I was asked to see this 28-year-old female in regards to an abscess in her breast. HPC: Patient has had pain and tenderness in her breast for the last few days. The right side is worse than the left. Was seen at another facility then came to our for evaluation and treatment. PSHx: Negative PMHx: Negative Social Hx: No known allergies Sys R: Otherwise healthy young lady O/E: Awake alert vital signs are stable HEENT: Negative Chest: Chest movement equal bilaterally Breast: Area of fluctuance felt in the right breast consistent with abscess seen on ultrasound Abd: Soft Ewing: Intact Data: Ultrasound demonstrates breast abscess Impression: Abscess of the right breast Plan: I will take the operating room for incision, drainage, sharp debridement of this abscess of her right breast. The risks of the procedure have been discussed. The possibility of bleeding, infection, recurrence ongoing problems and scar formation were described. She understands and wants to proceed.
[2024-07-01] MEDS ORDERED: ONDANSETRON 4 MG/2 ML VIAL ONE (15:06)
[2024-07-01] MEDS ORDERED: dexAMETHasone 4 MG/ML VIAL ONE (15:06)
--- NOTE | 2024-07-01 15:30 | P.OP ---
Preoperative diagnosis: Right breast abscess Postoperative diagnosis: The same Primary procedure: Incision, drainage, sharp debridement of abscess of the right breast Anesthesia: General Estimated blood loss: Less than 10 cc Operative Technique: Patient brought the operating room placed supine on the table. After the end induction of anesthesia, the area of the right breast was prepped with a Betadine solution and draped in usual aseptic manner. On the medial aspect we could see a elevated swollen area. This was infiltrated with 1% lidocaine. A skin incision was made. This brought us down through the skin and subcutaneous tissue. We encountered a large amount of purulent material. This was drained using the Yankauer suction. The necrotic debris was sharply excised using a cutting 11 surgical blade. A suture was now placed into the wound and brought out more superiorly. This was tied on itself to keep the wound open and draining during the postoperative period. At the end of the procedure a sterile dressing was applied. She was in a stable condition was sent to the recovery room. Drain(s): Other (#2 nylon) Transferred to: Recovery Room Condition: Good
[2024-07-01 15:53] VITALS: O2SAT 97
[2024-07-01] MEDS: NA CHLORIDE 0.9% 1,000 ML ONE (16:02)
[2024-07-01 16:25] VITALS: BP 117/65; TEMP 97.8
[2024-07-01] MEDS ORDERED: ENOXAPARIN 40 MG/0.4 ML SQ SCH (20:44)
--- NOTE | 2024-07-02 11:56 | EKG ---
Test Date: 2024-06-30 Test Time: 20:47:59 Medical Unit Secretary: AMINTA MEASUREMENT RESULTS: Intervals: Rate: 77 NC: 162 QRSD: 98 QT: 382 QTc: 432 [place]: P: 31 NC: 162 QRS: 78 T: 23 INTERPRETIVE STATEMENTS: Normal sinus rhythm Normal ECG No previous ECG available for comparison Electronically Signed On 07-02-24 11:52:48 CDT by Lucio Frank
== END 2024-07-01 19:25 | disposition home or self-care (01) | DRG 854 ==
LOC: ER 19:05 → ERHOLD 20:42 → 4TH 21:26
PROVIDERS: ADMIT Family Medicine; ATTEND Hospitalist
PROC: 0JD60ZZ Extraction of Chest Subcutaneous Tissue and Fascia, Open Approach (ICD-10-PCS; principal; 2024-07-01 14:30)
DX: A41.9 Sepsis, unspecified organism (principal); E87.1 Hypo-osmolality and hyponatremia; Z68.41 Body mass index [BMI] 40.0-44.9, adult; E66.9 Obesity, unspecified; N61.1 Abscess of the breast and nipple; F32.A Depression, unspecified; Z79.899 Other long term (current) drug therapy; Z79.84 Long term (current) use of oral hypoglycemic drugs
CPT/HCPCS: 36415; 76881; 80048; 80053; 81001; 81025; 83605; 85025; 85610; 85730; 87040; 93005; 96374; 99285; J0696; J1100; J2250; J2405; J2704; J3010; J7030